=== PATIENT | male | born 1950 | race Caucasian/White ===

== ENCOUNTER 2018-03-07 15:11 | Observation (INO) | payer OTHER ==
[2018-03-07] MEDS ORDERED: NA CHLORIDE 0.9% 500 ML ONE (15:32)
[2018-03-07 15:49] LABS: Protime INR 1.11
[2018-03-07 15:51] LABS: Absolute Lymphocytes (CBC) 1.4 K/uL (0.7-4.9); Absolute Monocytes 0.6 K/uL (0.1-1.3); Absolute Neutrophil 3.6 K/uL (1.8-8.0); Basophils % 0.6 % (0-1.3); Eosinophils % 2.2 % (0-4.4); Hematocrit 42.4 % (39.6-49.0); Lymphocytes % 23.9 % (15.3-44.8); MCH 31.1 pg (27.0-35.0); MCV 90.1 fL (80-100); MPV 7.3 fL (7.6-11.3); Monocytes % 9.7 % (3.3-12.3); RBC Red Blood Cell Count 4.71 M/uL (4.33-5.43)
--- NOTE | 2018-03-07 15:55 | RAD REPORT ---
EXAM DESCRIPTION: CT - Head Brain Wo Cont - 03/07/2018 3:44 pm CLINICAL HISTORY: Syncope COMPARISON: None. TECHNIQUE: Computed axial tomography of the head was obtained. IV contrast was not requested. All CT scans are performed using dose optimization technique as appropriate and may include automated exposure control or mA/KV adjustment according to patient size. FINDINGS: An intracranial bleed is not seen . The ventricles are normal in caliber. No extra-axial fluid collection is noted. Fluid within the sinuses/ mastoids is not seen. IMPRESSION: No acute intracranial abnormality is seen. If patient's symptoms persist MRI of the bra in would be recommended.
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
[2018-03-07] MEDS ORDERED: ASPIRIN 81 MG CHEWABLE TABLET ONE (16:22)
[2018-03-07] MEDS ORDERED: ACETAMINOPHEN 500 MG TAB PO PRN (16:30)
[2018-03-07] MEDS: INSULIN -REGULAR HUMAN 50 UNIT/0.5 ML ML SQ SCH ×2 (16:30→21:00)
[2018-03-07] MEDS ORDERED: ALBUTEROL 2.5 MG/3 ML NEB SOL NEB PRN (16:30)
[2018-03-07] MEDS ORDERED: ONDANSETRON 4 MG/2 ML VIAL IV PRN (16:30)
[2018-03-07] MEDS ORDERED: IPRATROPIUM BROM 0.5MG/2.5ML NEB PRN (16:30)
--- NOTE | 2018-03-07 16:37 | EKG ---
Test Date: 2018-03-07 Test Time: 15:10:43 Auto Transmission Specialist: VALERIA MEASUREMENT RESULTS: Intervals: Rate: 62 MS: 146 QRSD: 102 QT: 380 QTc: 385 [place]: P: 46 MS: 146 QRS: 40 T: 41 INTERPRETIVE STATEMENTS: Normal sinus rhythm Normal ECG Compared to ECG 06/07/2002 19:24:00 No significant changes Electronically Signed On 03-07-18 16:36:50 CDT by Yovani Bacon
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
--- NOTE | 2018-03-07 17:14 | RAD REPORT ---
EXAM DESCRIPTION: RAD - Chest Pa And Lat (2 Views) - 03/07/2018 5:06 pm CLINICAL HISTORY: Syncope, dizziness COMPARISON: December 2013 TECHNIQUE: PA and lateral views of the chest were obtained. FINDINGS: The lungs are clear of failure, infiltrate or mass. Enlarged pulmonary arteries noted incr eased slightly from prior imaging. No pulmonary artery hypertension history noted. Heart size is no rmal and central vasculature is within normal limits. No pleural effusion or pneumothorax seen. No acute bony finding noted. No aortic abnormality. IMPRESSION: No failure, infiltrate or lung parenchymal mass. Enlarged pulmonary arteries increased slightly over 2014.
--- NOTE | 2018-03-07 17:35 | RAD REPORT ---
EXAM DESCRIPTION: TANVI - LAY - 03/07/2018 5:24 pm CLINICAL HISTORY: TIA, weakness, dizziness, near syncope COMPARISON: None. TECHNIQUE: Real-time sonographic evaluation of both carotid systems was performed. Doppler interroga tion was performed with waveform tracing bilaterally. FINDINGS: Normal high resistance waveforms are noted in both external carotid arteries. The common c arotid arteries and internal carotid arteries show normal low resistance waveforms. No significant plaque formation is seen. Peak systolic and end diastolic velocity values and the ICA/ CCA ratios are in the non-hemodynamically significant range. Antegrade flow seen in both vertebral arteries. Velocity values and ratios were recorded and are retained in the patient's imaging records. IMPRESSION: No significant atherosclerotic changes noted. No evidence of a hemodynamically significant stenosis.
[2018-03-07 17:50] LABS: Potassium 4.3 mmol/L (3.5-5.1)
[2018-03-07 17:51] LABS: Magnesium 2.2 mg/dL (1.8-2.4)
--- NOTE | 2018-03-07 19:08 | RAD REPORT ---
EXAM DESCRIPTION: CTHead angio03/07/2018 6:48 pm CLINICAL HISTORY: Syncope COMPARISON: None TECHNIQUE: CT angiogram of the head was obtained. 50 cc Isovue 370 was intravenously. Coronal and sa gittal reconstruction was performed. All CT scans are performed using dose optimization technique as appropriate and may include automated exposure control or mA/KV adjustment according to patient size. FINDINGS: The basilar, internal carotid, anterior cerebral, middle cerebral and posterior cerebral a rteries are normal caliber. An aneurysm is not seen. A significant stenosis is not noted. IMPRESSION: Unremarkable CT angiogram head.
--- NOTE | 2018-03-07 19:10 | RAD REPORT ---
EXAM DESCRIPTION: [facility] Angio03/07/2018 6:47 pm CLINICAL HISTORY: Syncope COMPARISON: None TECHNIQUE: 50 cc Isovue [address] angiogram neck was performed. Coronal and sagittal reconstruction was done. All CT scans are performed using dose optimization technique as appropriate and may include automated exposure control or mA/KV adjustment according to patient size. FINDINGS: The opacification of the arteries is somewhat suboptimal. A short segment oblique lucency is present within the distal right vertebral artery. The vertebral arteries are codominant Common carotid, external carotid, internal carotid and left vertebral artery are normal caliber witho ut dissection or significant stenosis. An aneurysm is not seen IMPRESSION: Short segment oblique lucency within the distal right vertebral artery probably represen ts artifact. Dissection is considered less likely. It is recommended that the patient have an MRA bra in and MRI brain for further evaluation Otherwise, the arteries appear unremarkable
[2018-03-07 20:00] VITALS: O2SAT 98
[2018-03-07 20:32] VITALS: BMI 58.9
[2018-03-07] MEDS ORDERED: ATORVASTATIN 20 MG TAB PO SCH (21:00)
[2018-03-07] MEDS ORDERED: GABAPENTIN 300 MG CAP PO SCH (21:00)
[2018-03-07] MEDS: NA CHLORIDE 0.9% 1,000 ML IV SCH (21:40)
[2018-03-07] MEDS: ENOXAPARIN 40 MG/0.4 ML SQ SCH (21:40)
[2018-03-07 21:54] LABS: Urine Appearance CLEAR; Urine Bilirubin NEGATIVE (NEG); Urine Blood NEGATIVE (NEG); Urine Color YELLOW; Urine Glucose NEGATIVE (NEG); Urine Microscopic Reflex NO UMIC; Urine Protein NEGATIVE (NEG); Urine Specific Gravity 1.025 (1.005-1.030)
[2018-03-07 23:05] LABS: CKMB Creatine Kinase MB 1.6 ng/mL (0.3-3.6)
[2018-03-08 05:55] LABS: Absolute Lymphocytes (CBC) 1.3 K/uL (0.7-4.9); Absolute Monocytes 0.5 K/uL (0.1-1.3); Absolute Neutrophil 3.1 K/uL (1.8-8.0); Basophils % 0.9 % (0-1.3); Eosinophils % 3.3 % (0-4.4); Hematocrit 38.1 % (39.6-49.0); Lymphocytes % 25.2 % (15.3-44.8); MCH 31.4 pg (27.0-35.0); MCV 89.6 fL (80-100); MPV 7.1 fL (7.6-11.3); Monocytes % 10.4 % (3.3-12.3); RBC Red Blood Cell Count 4.26 M/uL (4.33-5.43)
[2018-03-08 06:11] LABS: CKMB Creatine Kinase MB 1.8 ng/mL (0.3-3.6); Magnesium 2.2 mg/dL (1.8-2.4); Potassium 4.8 mmol/L (3.5-5.1); T4,Total 8.1 ug/dL (4.5-12.1)
[2018-03-08 06:13] LABS: Thyroid Stimulating Hormone 3.85 uIU/mL (0.36-3.74)
[2018-03-08] MEDS: INSULIN -REGULAR HUMAN 50 UNIT/0.5 ML ML SQ SCH ×2 (07:30→11:30)
[2018-03-08] MEDS ORDERED: PANTOPRAZOLE 40MG TABLET PO SCH (07:30)
--- NOTE | 2018-03-08 08:18 | P.PN ---
Subjective Date of Service: 03/08/18 Primary Care Provider: [facility] Chief Complaint: Diplopia, headache, dizziness Subjective: Other (Patient has mild headache. No diplopia or dizziness noted. No significant chest pain noted.) Physical Examination - Vital Signs Temperature: 97.9 F Blood Pressure: 137/86 Pulse: 65 Respirations: 16 Pulse Ox (%): 96 - Physical Exam General: Alert, In no apparent distress, Oriented x3, Cooperative HEENT: Atraumatic Neck: Supple Respiratory: Clear to auscultation bilaterally, Normal air movement Cardiovascular: Normal pulses, Regular rate/rhythm Gastrointestinal: Normal bowel sounds, Soft and benign, Non-distended, No tenderness, No masses, No rebound, No guarding, Other (Morbid obesity) Musculoskeletal: No erythema, No tenderness, No warmth Integumentary: No erythema, No warmth, No cyanosis, Tenderness/swelling (Edema to the lower extremity improved. Patient with chronic lymphedema ) Neurological: Normal speech, Normal strength at 5/5 x4 extr, Normal tone, Normal affect - Studies Medications List Reviewed: Yes Assessment & Plan - Problems (Diagnosis) (1) TIA (transient ischemic attack) Current Visit: Yes Status: Acute Plan: Patient likely had TIA. CT angiogram of neck scan shows short-segment oblique lucency within the distal right vertebral artery. Vertebral artery dissection could not be excluded. Case discussed in detail with radiology, cardiology and neurology. Patient requires MRI/MRA brain of neck to further assess but this cannot be done at our facility due to his weight(patient weighs 450 lb). Recommendation is for the patient be transferred to higher level of care center for 4 vessel angiogram with possible intervention to further assess the distal right vertebral artery for dissection. Patient previously not on aspirin, cholesterol medication for blood pressure medication. Patient now on aspirin, statin medication and lisinopril. Patient with history of diabetes, hyperlipidemia, hypertension, atrial fibrillation with previous ablation and morbid obesity. Await transfer to higher level of care center. Transfer in progress. (2) Diplopia Current Visit: Yes Status: Acute Plan: Continue as above. Recommend transfer for 4 vessel angiogram (3) Headache Current Visit: Yes Status: Acute Plan: Continue as above Qualifiers: Headache type: unspecified Headache chronicity pattern: acute headache Intractability: not intractable Qualified Code(s): R51 - Headache (4) Dizziness Current Visit: Yes Status: Acute Plan: Continue as above. (5) Diabetes mellitus Current Visit: Yes Status: Chronic Plan: A1c 6.2. Will continue sliding scale. Qualifiers: Diabetes mellitus type: type 2 Diabetes mellitus nursing home insulin use: without nursing home use Diabetes mellitus complication status: with neurologic complications Diabetes mellitus complication detail: with unspecified neuropathy Qualified Code(s): E11.40 - Type 2 diabetes mellitus with diabetic neuropathy, unspecified (6) Diabetic neuropathy Current Visit: Yes Status: Chronic Plan: Continue with gabapentin Qualifiers: Diabetes mellitus type: type 2 Diabetes mellitus complication detail: diabetic polyneuropathy Qualified Code(s): E11.42 - Type 2 diabetes mellitus with diabetic polyneuropathy (7) Hypertension Current Visit: No Status: Chronic Plan: Lisinopril started, low dose. Will hold if blood pressure less than 150 systolic. Qualifiers: Hypertension type: essential hypertension Qualified Code(s): I10 - Essential (primary) hypertension (8) Lymphedema Current Visit: No Status: Chronic Plan: Patient with chronic lymphedema. Patient uses wrappings. Will provide Lasix. (9) Morbid obesity Current Visit: No Status: Chronic Plan: Will evaluate BMI. (10) Abnormal CT of brain Current Visit: Yes Status: Acute Plan: Continue as above. (11) Vertebral artery dissection Current Visit: Yes Status: Suspected Plan: Case discussed with radiology, neurology and cardiology. Patient requires further evaluation. Patient not able to get MRI/MRA brain/neck at our facility due to his weight. Patient weighs over 450 lb. Recommendation is transfer to neuro ICU for 4 vessel angiogram to further assess. Patient will need neuro ICU , neurology, neuro radiology and possible neuro surgery. (12) History of atrial fibrillation Current Visit: Yes Status: Chronic Plan: Patient with cardiac ablation the past. Patient in normal sinus rhythm. (13) History of cardiac radiofrequency ablation Current Visit: Yes Status: Chronic Plan: Patient currently stable this time. (14) Hyperlipidemia Current Visit: Yes Status: Chronic Plan: Patient has been started on statin medication. (15) Elevated troponin Current Visit: Yes Status: Acute Plan: Patient with elevated troponin. Cardiology consulted. Patient will likely need cardiac evaluation. Continue as above. Discharge Plan: Transfer Plan to discharge in: 24 Hours Time Spent Managing Pts Care (In Minutes): 55
[2018-03-08] MEDS ORDERED: ASPIRIN EC 81 MG TAB PO SCH (09:00)
[2018-03-08] MEDS ORDERED: FUROSEMIDE 40 MG TABLET PO SCH (09:00)
[2018-03-08] MEDS ORDERED: GABAPENTIN 300 MG CAP PO SCH (09:00)
[2018-03-08] MEDS ORDERED: LISINOPRIL 10 MG TAB PO SCH ×2 (09:00)
[2018-03-08] MEDS ORDERED: OXYBUTYNIN ER 5 MG TAB PO SCH ×2 (09:00)
[2018-03-08] MEDS: ENOXAPARIN 40 MG/0.4 ML SQ SCH (09:05)
--- NOTE | 2018-03-08 11:10 | P.DS ---
Admission Date: 03/07/18 Discharge Date: 03/08/18 Primary Care Provider: [facility] Disposition: TRANSFER TO [facility] Discharge Condition: GOOD Reason for Admission: Diplopia, headache, dizziness Consultations: Neurology-Dr. Levi Cardiology-Dr. Bacon Procedures: CT head: No acute findings noted. Carotid Doppler: No acute findings noted. CT angiogram head: FINDINGS: The basilar, internal carotid, anterior cerebral, middle cerebral and posterior cerebral arteries are normal caliber. An aneurysm is not seen. A significant stenosis is not noted. IMPRESSION: Unremarkable CT angiogram head. CT angiogram neck: FINDINGS: The opacification of the arteries is somewhat suboptimal. A short segment oblique lucency is present within the distal right vertebral artery. The vertebral arteries are codominant Common carotid, external carotid, internal carotid and left vertebral artery are normal caliber without dissection or significant stenosis. An aneurysm is not seen IMPRESSION: Short segment oblique lucency within the distal right vertebral artery probably represents artifact. Dissection is considered less likely. It is recommended that the patient have an MRA brain and MRI brain for further evaluation Otherwise, the arteries appear unremarkable - Problems (1) TIA (transient ischemic attack) Onset Date: 03/08/18 Current Visit: Yes Status: Acute (2) Diplopia Onset Date: 03/08/18 Current Visit: Yes Status: Acute (3) Headache Onset Date: 03/08/18 Current Visit: Yes Status: Acute Qualifiers: Headache type: unspecified Headache chronicity pattern: acute headache Intractability: not intractable Qualified Code(s): R51 - Headache (4) Dizziness Onset Date: 03/08/18 Current Visit: Yes Status: Acute (5) Diabetes mellitus Onset Date: 03/08/18 Current Visit: Yes Status: Chronic Qualifiers: Diabetes mellitus type: type 2 Diabetes mellitus chcf insulin use: without diver pumper use Diabetes mellitus complication status: with neurologic complications Diabetes mellitus complication detail: with unspecified neuropathy Qualified Code(s): E11.40 - Type 2 diabetes mellitus with diabetic neuropathy, unspecified (6) Diabetic neuropathy Onset Date: 03/08/18 Current Visit: Yes Status: Chronic Qualifiers: Diabetes mellitus type: type 2 Diabetes mellitus complication detail: diabetic polyneuropathy Qualified Code(s): E11.42 - Type 2 diabetes mellitus with diabetic polyneuropathy (7) Hypertension Onset Date: 03/08/18 Current Visit: Yes Status: Chronic Qualifiers: Hypertension type: essential hypertension Qualified Code(s): I10 - Essential (primary) hypertension (8) Lymphedema Onset Date: 03/08/18 Current Visit: Yes Status: Chronic (9) Morbid obesity Onset Date: 03/08/18 Current Visit: Yes Status: Chronic (10) Abnormal CT of brain Current Visit: Yes Status: Acute (11) Vertebral artery dissection Current Visit: Yes Status: Suspected (12) History of atrial fibrillation Current Visit: Yes Status: Chronic (13) History of cardiac radiofrequency ablation Current Visit: Yes Status: Chronic (14) Hyperlipidemia Current Visit: Yes Status: Chronic (15) Elevated troponin Current Visit: Yes Status: Acute Brief History of Present Illness: 67-year-old male presented emergency room with multiple complaints including headache, dizziness, and diplopia. Patient has diabetes, diabetic neuropathy, a history of atrial fibrillation with previous ablation and morbid obesity. Patient reported this morning he was sitting in front of the computer. He reported a sharp pain to the back of his eyes. He reported a headache as well. He then felt his eyes cross. Then he had double vision. This lasted about 2 min. He felt dizzy thereafter. When he closed one eye he felt his vision was good. He continued to have blurry vision. The patient denied any chest pain, shortness of breath, or nausea and vomiting. [facility] recommended that he go to the ER. Earlier in the day his son called him. His son reported that he was muffled. The patient does not recall this. He reported that his symptoms lasted for about 20 min. He is now back to his baseline. In the ER patient was evaluated. Initial CT scan shows no acute stroke. Lab unremarkable. Blood pressure is slightly elevated. Due to nature of his symptoms the the patient will be observed. When I saw the patient ER, he appeared comfortable. Family was at bedside. He reported no further dizziness, headaches or diplopia. The patient does not smoke. He stop drinking many years ago. Patient reports that he had been taking and blood pressure medication but this was discontinued years ago. He does not take aspirin. He was recently diagnosed with asbestosis. The patient is morbidly obese. Patient with history of atrial fibrillation with previous ablation. He also has a history of DVT in the past. The patient does not take any cholesterol medication. Hospital Course: The patient was admitted to further assess diplopia, dizziness and headache. Patient had CT angiogram of neck. It revealed a short segment oblique lucency within the distal right vertebral artery. Dissection could not be ruled out. Due to the patient's weight over 450 lb, MRI/MRA could not be done. Discuss length with radiology, neurology and cardiology. Recommendation is to transfer patient to higher level of care center to further evaluate possible dissection. Patient would require 4 vessel angiogram. Case discussed with Neurology at [facility]. Neurology has accepted patient to further evaluate. Patient may require repeat CT angiogram verses 4 vessel angiogram. Patient may require dual anti-platelet therapy or chronic anti coagulation due to his history of atrial fibrillation. Patient transferred for further evaluation. Patient has diabetes. Hemoglobin A1c 5.2. Patient currently on sliding scale. Patient may continue with his medication at discharge. Patient has hypertension. Patient previously had been on medication but this was discontinued. Patient currently on lisinopril 10 mg daily. Will hold if blood pressure systolic less than 150. This can be further adjusted in [place]. Patient has history of atrial fibrillation with previous ablation. Patient with normal sinus rhythm. Patient may require chronic anti coagulation therapy due to above findings. This can be further assessed by Neurology and Cardiology. Patient with elevated troponin. Patient is not had cardiac workup in the recent past. Patient may benefit with cardiac evaluation. Echocardiogram to be done. Patient has hyperlipidemia. Statin medication started. This will need to be continued. Patient with diabetic neuropathy. Patient will need to continue with his medication. Patient with BPH. Patient continue with his medication. Patient has lymphedema. Patient does wrappings daily. Patient may benefit with Lasix 40 mg daily. Patient will need to continue with a 1500 cc per day fluid restriction and low-salt diet. Patient with morbid obesity. Patient with history of lap band procedure. Vital Signs/Physical Exam: Temp Pulse Resp BP Pulse Ox 97.9 F 72 16 158/86 H 96 03/08/18 08:23 03/08/18 09:02 03/08/18 08:23 03/08/18 09:02 03/08/18 08:23 General: Alert, In no apparent distress, Oriented x3, Cooperative HEENT: Atraumatic Neck: Supple Respiratory: Clear to auscultation bilaterally, Normal air movement Cardiovascular: Normal pulses, Regular rate/rhythm Gastrointestinal: Normal bowel sounds, Soft and benign, Non-distended, No masses , No rebound, No guarding Musculoskeletal: No erythema, No tenderness, No warmth Integumentary: No erythema, No warmth, No cyanosis, Tenderness/swelling (Edema to the lower extremities improved) Neurological: Normal speech, Normal strength at 5/5 x4 extr, Normal tone, Normal affect Laboratory Data at Discharge: WBC 5.1 K/uL (4.3-10.9) 03/08/18 05:28 Hgb 13.4 g/dL (13.6-17.9) L 03/08/18 05:28 Hct 38.1 % (39.6-49.0) L 03/08/18 05:28 Plt Count 168 K/uL (152-406) 03/08/18 05:28 PT 13.1 SECONDS (9.5-12.5) H 03/07/18 16:08 INR 1.11 03/07/18 16:08 APTT 29.5 SECONDS (24.3-36.9) 03/07/18 16:08 Sodium 140 mmol/L (136-145) 03/08/18 05:28 Potassium 4.8 mmol/L (3.5-5.1) 03/08/18 05:28 BUN 18 mg/dL (7-18) 03/08/18 05:28 Creatinine 1.30 mg/dL (0.55-1.3) 03/08/18 05:28 Glucose 114 mg/dL (74-106) H 03/08/18 05:28 Magnesium 2.2 mg/dL (1.8-2.4) 03/08/18 05:28 Troponin I 0.06 ng/mL (0.0-0.045) H 03/08/18 05:28 Triglycerides 84 mg/dL (<150) 03/08/18 05:28 Cholesterol 109 mg/dL (<200) 03/08/18 05:28 HDL Cholesterol 40 mg/dL (40-60) 03/08/18 05:28 Cholesterol/HDL Ratio 2.73 03/08/18 05:28 Home Medications: Albuterol Sulfate [Proair Hfa] 2 puff IH TID 03/07/18 Gabapentin [Neurontin] 900 mg PO TID 03/07/18 Meloxicam [Mobic] 1 tab PO BID 03/07/18 Metformin HCl [Glucophage*] 500 mg PO BID 03/07/18 Oxybutynin Chloride [Ditropan*] 10 mg PO BID 03/07/18 Patient Discharge Instructions: 1. Patient to be transferred to higher level of care center to further assess possible distal right vertebral artery. Continue with current medications. Further adjustment in medication can be done in [place]. Diet: AHA Activity: Bedrest Time spent managing pt's care (in minutes): 55
--- NOTE | 2018-03-08 11:39 | CON ---
Identification: A 67-year-old man. Chief Complaint: Double vision. History Of Present Illness: The patient was in his usual state of health, sitting, watching a comput er screen when he got double vision. He was also lightheaded, near syncopal. He thinks he may have lost vision completely for a few seconds. After coming to the ER, most of his symptoms had resolved. I do not think he got tPA. He has been in our hospital since then. Most of his neurological sympt oms have improved. He has had a variety of tests showing that the carotid arteries look okay, which is reassuring since his symptoms would be posterior circulation. A CT angio of the head and neck ind icates that the vertebral artery appears possibly to be dissected well. The vertebral arteries are c odominant. It is the distal right vertebral artery, so probably quite close to it being intracranial . An MRI has not been done. An attempt was made to send the patient to [facility], but weight creates a problem for MRI scanners and nobody could really do it. I do not think we can fit him in our MRI scanner either. The patient has morbid obesity all of his life. He weighed close to 450 venkat nds for years. He has a history of AFib and underwent ablation and has had no AFib. Has not been on anticoagulants. About a year ago, he had DVT and took Coumadin for 6 months. He is now off it, and he has diabetes, which he attributes to [employer] exposure. Medications: Home medications are meloxicam, oxybutynin, metformin gabapentin, and albuterol. Appar ently he has not been on aspirin. His medications since being are DVT dose, Lovenox, aspirin 162, li sinopril, oxybutynin, Protonix, insulin protocol, gabapentin, Lasix, Lipitor. He is not Plavix. Allergies: REPORTS INTOLERANCE TO ADHESIVE TAPE AND BETA BLOCKERS. Physical Examination: Vital Signs: Height 6 feet 1, 446 pounds. General: Alert, oriented, pleasant. HEENT: Extraocular motions normal. Lungs: Clear. Heart: Within normal limits. Abdomen: Soft. Extremities: marked edema. There are venous stasis cutaneous changes. Mild cellulitis on the right chu. Laboratory Data: His EKG is normal. Troponin levels are 0.05, 0.06, and 0.03. Creatinine is 1.2 an d 1.3. Blood sugar 114. Total cholesterol 109, HDL cholesterol 40. 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 I would be concerned th at he may be a candidate for a neuroradiologist's input. I am not sure that they would want to put a stent in, but I think a higher level of care is really needed, at least a telephone consult with the neuroradiologist might settle things as to whether they would do an intervention. Apparently, there are not any machines that would fit him in for an MRA. An angiography suite most likely would be ab le to accommodate him and it is conceivable, although probably technically difficult that he could gann ve a stent placed in his vertebral artery for this dissection. I would ask Dr. Levi whether dual anti-platelet therapy is indicated. regarding the troponins, the patient has not had chest pain, gann s not had EKG changes. I can't really explain the troponins, but they are not in a pattern or a sett ing where it sounds at all like an acute coronary syndrome. So, if he gets chest pain, we will give aspirin and I would be in favor of dual antiplatelet therapy, not just aspirin alone. He is not a ca ndidate who needs an emergency cardiac cath. He would not be a candidate who could do a nuclear stre ss test. So, medical therapy for ischemic heart disease would be indicated, which would be dual anti platelet therapy, statins, and nitroglycerin p.r.n. YARI/ADRIAN Voice ID: [id number] Report ID: [id number]
[2018-03-08 12:15] VITALS: BP 167/102; TEMP 97.7
[2018-03-08] MEDS: NA CHLORIDE 0.9% 1,000 ML IV SCH (13:00)
== END 2018-03-08 14:40 | disposition short-term general hospital (02) ==
LOC: ER 15:11 → ERHOLD 16:08 → 4TH 18:29
PROVIDERS: ADMIT Family Medicine; ATTEND Family Medicine
DX: G45.9 Transient cerebral ischemic attack, unspecified (principal); H53.2 Diplopia; E66.01 Morbid (severe) obesity due to excess calories; Z86.718 Personal history of other venous thrombosis and embolism; Z57.5 Occupational exposure to toxic agents in other industries; Z79.84 Long term (current) use of oral hypoglycemic drugs; Z79.82 Long term (current) use of aspirin; Z88.8 Allergy status to other drugs, medicaments and biological substances; Z91.048 Other nonmedicinal substance allergy status; I87.8 Other specified disorders of veins; L03.115 Cellulitis of right lower limb; R51 Headache; R42 Dizziness and giddiness; E11.42 Type 2 diabetes mellitus with diabetic polyneuropathy; I10 Essential (primary) hypertension; R74.8 Abnormal levels of other serum enzymes; I89.0 Lymphedema, not elsewhere classified; R90.89 Other abnormal findings on diagnostic imaging of central nervous system; J61 Pneumoconiosis due to asbestos and other mineral fibers; Z98.84 Bariatric surgery status; Z68.44 Body mass index [BMI] 60.0-69.9, adult
CPT/HCPCS: 36415; 70450; 70496; 70498; 71046; 80048 ×2; 80061; 81003; 82550 ×2; 82553 ×2; 82962 ×3; 83036; 83735 ×2; 84436; 84439; 84443; 84484 ×3; 85025 ×2; 85610; 85730; 93005 ×2; 93880; 96360; 99285; G0378 ×2; J1650 ×2; J7030; Q9967

== ENCOUNTER 2019-08-21 05:14 | Inpatient (IN) | payer OTHER ==
--- OUTSIDE RECORDS SUMMARY | 2019-08-21 05:18 | XMS REPORT ---
:1950 [facility] Address [address] [place] [address] Care Team Providers Name Role Phone MALCOLM XIE Unavailable Unavailable Payers Payer Name Policy Type Policy Number Effective Date Expiration Date Problems This patient has no known problems. Allergies, Adverse Reactions, Alerts Allergy Allergy Status Severity Reaction(s) Onset Inactive Treating Comments Name Type Date Date Clinician No Known DA Active U 2019-03 Drug - Allergies 00:00:0 0 adhesive DA Active [place] 2019-03 tape 00:00:0 0 No Known DA Active U 2019-02 Drug - Allergies 00:00:0 0 adhesive DA Active [place] 2019-02 tape 00:00:0 0 adhesive DA Active [place] 2018-11 00:00:0 0 adhesive DA Active [place] 2018-11 00:00:0 0 adhesive DA Active [place] 2014-04 00:00:0 0 Medications This patient has no known medications. Results Test Description Test Time Test Comments Text Results Atomic Results Result Comments B-TYPE NATRIURETIC PEPTIDE 2019-04-16 08:53:00 Test Item Value Reference Range Comments B-TYPE NATRIURETIC PEPTIDE (test code=BNP) 76.60 pg/mL 0-100 B-TYPE NATRIURETIC [id number] 08:53:00 Test Item Value Reference Range Comments B-TYPE NATRIURETIC PEPTIDE (test code=BNP) 76.60 pg/mL 0-100 BASIC METABOLIC [id number] 07:14:00 Test Item Value Reference Range Comments SODIUM (test code=NA) 136 mmol/L 136-145 POTASSIUM (test code=K) 5.2 mmol/L 3.5-5.1 CHLORIDE (test code=CL) 98.0 mmol/L 98-107 CARBON DIOXIDE (test code=CO2) 29.3 mmol/L 21-32 GLUCOSE (test code=GLU) 178 mg/dL 70-110 BLOOD UREA NITROGEN (test 29 mg/dL -18 code=BUN) GLOMERULAR FILTRATION RATE 58.3 >60 Unit of measure: (test code=GFR) mL/min/1.73 [id number] Range:Healthy Adults >90 mL/min/1.73 m2 For Chronic Kidney Disease: Stage II Mild Decrease in GFR 60-90 Stage III Moderate Decrease in GFR 30-59 Stage IV Severe Decrease in GFR 15-29 Stage V Kidney Failure <15 CREATININE (test code=CREAT) 1.23 mg/dL 0.55-1.30 CALCIUM (test code=CA) 8.8 mg/dL 8.2-10.1 [id number] 07:14:00 Test Item Value Reference Range Comments MAGNESIUM (test code=MAG) 1.9 mg/dL 1.8-2.4 HGB [id number] 06:13:00 Test Item Value Reference Range Comments HEMOGLOBIN (test code=HGB) 13.0 g/dL 12-16 HEMATOCRIT (test code=HCT) 38.6 % 37-47 [id number] 21:36:00 Test Item Value Reference Range Comments GLUBED (test code=GLUBED) 252 mg/dL 60-125 [id number] 10:14:00 Test Item Value Reference Range Comments GLUBED (test code=GLUBED) 115 mg/dL 60-125 COMPREHENSIVE METABOLIC [id number] 13:14:00 Test Item Value Reference Range Comments SODIUM (test code=NA) 138 mmol/L 136-145 POTASSIUM (test code=K) 5.1 mmol/L 3.5-5.1 CHLORIDE (test code=CL) 101.0 mmol/L 98-107 CARBON DIOXIDE (test code=CO2) 31.0 mmol/L 21-32 GLUCOSE (test code=GLU) 115 mg/dL 70-110 BLOOD UREA NITROGEN (test 25 mg/dL 18 code=BUN) GLOMERULAR FILTRATION RATE 60.6 >60 Unit of measure: (test code=GFR) mL/min/1.73 h1Scvemlghp Range:Healthy Adults >90 mL/min/1.73 m2 For Chronic Kidney Disease: Stage II Mild Decrease in GFR 60-90 Stage III Moderate Decrease in GFR 30-59 Stage IV Severe Decrease in GFR 15-29 Stage V Kidney Failure <15 CREATININE (test code=CREAT) 1.19 mg/dL 0.55-1.30 TOTAL PROTEIN (test code=PROT) 6.7 g/dL 6.4-8.2 ALBUMIN (test code=ALB) 3.8 g/dL 3.4-5.0 GLOBULIN (test code=GLOB) 2.9 g/dL 2.2-4.2 ALBUMIN/GLOBULIN RATIO (test 1.3 0.7-2.0 code=A/G) CALCIUM (test code=CA) 9.1 mg/dL 8.2-10.1 BILIRUBIN TOTAL (test 0.61 mg/dL 0.2-1.00 code=BILT) SGOT/AST (test code=AST) 15.0 U/L 15-37 SGPT/ALT (test code=ALT) 18.0 U/L 12-78 Please note new normal range. ALKALINE PHOSPHATASE TOTAL 92 U/L 46-116 (test code=ALKP) URINALYSIS [id number] 13:06:00 Test Item Value Reference Range Comments UA COLOR (test code=COLU) YELLOW YELLOW UA APPEARANCE (test code=APPU) CLEAR CLEAR UA GLUCOSE DIPSTICK (test code=DGLUU) NEGATIVE NEGATIVE UA BILIRUBIN DIPSTICK (test code=BILU) NEGATIVE NEGATIVE UA KETONE DIPSTICK (test code=KETU) NEGATIVE mg/dL NEGATIVE UA SPECIFIC GRAVITY (test code=SGU) 1.010 1.003-1.035 UA BLOOD DIPSTICK (test code=RON) NEGATIVE NEGATIVE UA PH DIPSTICK (test code=EDA) 7.0 >6.5 UA PROTEIN DIPSTICK (test code=PROU) NEGATIVE mg/dL NEG UA UROBILINIOGEN DIPSTICK (test code=URO) 2.0 mg/dL NORM UA NITRITE DIPSTICK (test code=JULES) NEGATIVE NEG UA LEUKOCYTE ESTERASE DIPSTICK (test NEGATIVE NEGATIVE code=LEUU) UA WBC (test code=WBCU) NONE SEEN /HPF 0-2 UA RBC (test code=RBCU) 0-2 /HPF 0-2 UA EPITHELIAL CELLS (test code=EPIU) 0-2 /HPF 0-2 UA BACTERIA (test code=BACU) RARE /HPF NONE PROTHROMBIN [id number] 13:06:00 Test Item Value Reference Range Comments PROTHROMBIN TIME PATIENT 15.1 secs 10.1-12.5 (test code=PTP) INTERNATIONAL NORMAL RATIO 1.34 <2.0 RECOMMENDED THERAPEUTIC RANGE (test code=INR) FOR ORAL ANTICOAGULANTTREATMENT: CONDITION INRProphylaxis of venous thrombosis in 2.0 - 3.0 high-risk medical or surgical patientsTreatment of venous thrombosis 2.0 - 3.0Prevention of embolism 2.0 - 3.0Prevention of recurrent embolism, or 3.0 - 4.5 patients with mechanical prosthetic intravascular valves IS PATIENT ON ANTICOAGULANTS ? YLIST ANTICOAGULANT/ANTI PLT MEDICATION : CoumadinHas Lab been notified if Patient is on Heparin Drip? NOIf Yes, order CBC , OCCULT BLOOD, PT every other day NTHROMBOPLASTIN TIME [id number] 13:06: 00 Test Item Value Reference Range Comments PTT ACTIVATED (test code=APTT) 31.3 secs 24.9-37.0 IS PATIENT ON ANTICOAGULANTS ? YLIST ANTICOAGULANT/ANTI PLT MEDICATION : CoumadinHas Lab been notified if Patient is on Heparin Drip? NOIf Yes, order CBC , OCCULT BLOOD, PT every other day NCBC W/AUTO [id number] 12:51:00 Test Item Value Reference Range Comments WHITE BLOOD CELL (test code=WBC) 5.7 K/mm3 5.7-10.5 RED BLOOD CELL (test code=RBC) 4.67 M/mm3 4.2-5.4 HEMOGLOBIN (test code=HGB) 14.0 g/dL 12-16 HEMATOCRIT (test code=HCT) 41.2 % 37-47 MEAN CELL VOLUME (test code=MCV) 88 fL 80-98 MEAN CELL HGB (test code=MCH) 30.0 pg 27-34 MEAN CELL HGB CONCENTRATION (test code=MCHC) 34.0 g/dL 30.8-34.1 RED CELL DISTRIBUTION WIDTH (test code=RDW) 12.9 % 11-16 PLT (test code=PLT) 210 K/mm3 130-400 MEAN PLATELET VOLUME (test code=MPV) 9.2 fL 8.9-12.1 NEUTROPHIL % (test code=NT%) 56.6 % 45-70 LYMPHOCYTE % (test code=LY%) 27.2 % 20-40 MONOCYTE % (test code=MO%) 11.6 % 3-10 EOSINOPHIL % (test code=EO%) 3.7 % 1-5 BASOPHIL % (test code=BA%) 0.7 % 0.0-1.1 NEUTROPHIL # (test code=NT#) 3.22 K/mm3 2.00-7.50 LYMPHOCYTE # (test code=LY#) 1.55 K/mm3 1.50-4.00 MONOCYTE # (test code=MO#) 0.66 K/mm3 0.2-0.8 EOSINOPHIL # (test code=EO#) 0.21 K/mm3 0.04-0.4 BASOPHIL # (test code=BA#) 0.04 K/mm3 0.02-0.10 MANUAL DIFF REQUIRED (test code=MDIFF) NO MANUAL DIFF NUCLEATED RED BLOOD CELL (test code=NRBC) 0 % 0-0 [id number] 16:46:00 Test Item Value Reference Range Comments GLUBED (test code=GLUBED) 189 mg/dL 60-125 [id number] 11:57:00 Test Item Value Reference Range Comments GLUBED (test code=GLUBED) 165 mg/dL 60-125 BASIC METABOLIC [id number] 07:11:00 Test Item Value Reference Range Comments SODIUM (test code=NA) 134 mmol/L 136-145 POTASSIUM (test code=K) 5.3 mmol/L 3.5-5.1 CHLORIDE (test code=CL) 99.0 mmol/L 98-107 CARBON DIOXIDE (test code=CO2) 28.5 mmol/L 21-32 GLUCOSE (test code=GLU) 154 mg/dL 70-110 BLOOD UREA NITROGEN (test 30 mg/dL 7-18 code=BUN) GLOMERULAR FILTRATION RATE 68.0 >60 Unit of measure: (test code=GFR) mL/min/1.73 [id number] Range:Healthy Adults >90 mL/min/1.73 m2 For Chronic Kidney Disease: Stage II Mild Decrease in GFR 60-90 Stage III Moderate Decrease in GFR 30-59 Stage IV Severe Decrease in GFR 15-29 Stage V Kidney Failure <15 CREATININE (test code=CREAT) 1.08 mg/dL 0.55-1.30 CALCIUM (test code=CA) 8.2 mg/dL 8.2-10.1 [id number] 07:11:00 Test Item Value Reference Range Comments MAGNESIUM (test code=MAG) 2.0 mg/dL 1.8-2.4 CBC W/AUTO [id number] 05:48:00 Test Item Value Reference Range Comments WHITE BLOOD CELL (test code=WBC) 5.8 K/mm3 5.7-10.5 RED BLOOD CELL (test code=RBC) 4.27 M/mm3 4.2-5.4 HEMOGLOBIN (test code=HGB) 12.8 g/dL 12-16 HEMATOCRIT (test code=HCT) 38.2 % 37-47 MEAN CELL VOLUME (test code=MCV) 90 fL 80-98 MEAN CELL HGB (test code=MCH) 30.0 pg 27-34 MEAN CELL HGB CONCENTRATION (test code=MCHC) 33.5 g/dL 30.8-34.1 RED CELL DISTRIBUTION WIDTH (test code=RDW) 12.2 % 11-16 PLT (test code=PLT) 202 K/mm3 130-400 MEAN PLATELET VOLUME (test code=MPV) 9.3 fL 8.9-12.1 NEUTROPHIL % (test code=NT%) 63.0 % 45-70 LYMPHOCYTE % (test code=LY%) 19.1 % 20-40 MONOCYTE % (test code=MO%) 12.7 % 3-10 EOSINOPHIL % (test code=EO%) 4.0 % 1-5 BASOPHIL % (test code=BA%) 0.7 % 0.0-1.1 NEUTROPHIL # (test code=NT#) 3.67 K/mm3 2.00-7.50 LYMPHOCYTE # (test code=LY#) 1.11 K/mm3 1.50-4.00 MONOCYTE # (test code=MO#) 0.74 K/mm3 0.2-0.8 EOSINOPHIL # (test code=EO#) 0.23 K/mm3 0.04-0.4 BASOPHIL # (test code=BA#) 0.04 K/mm3 0.02-0.10 MANUAL DIFF REQUIRED (test code=MDIFF) NO MANUAL DIFF NUCLEATED RED BLOOD CELL (test code=NRBC) 0 % 0-0 [id number] 05:39:00 Test Item Value Reference Range Comments GLUBED (test code=GLUBED) 175 mg/dL 60-125 [id number] 20:20:00 Test Item Value Reference Range Comments GLUBED (test code=GLUBED) 182 mg/dL 60-125 [id number] 16:45:00 Test Item Value Reference Range Comments GLUBED (test code=GLUBED) 157 mg/dL 60-125 BASIC METABOLIC [id number] 12:10:00 Test Item Value Reference Range Comments SODIUM (test code=NA) 133 mmol/L 136-145 POTASSIUM (test code=K) 5.6 mmol/L 3.5-5.1 CHLORIDE (test code=CL) 98.0 mmol/L 98-107 CARBON DIOXIDE (test code=CO2) 29.5 mmol/L 21-32 GLUCOSE (test code=GLU) 175 mg/dL 70-110 BLOOD UREA NITROGEN (test 35 mg/dL 7-18 code=BUN) GLOMERULAR FILTRATION RATE 62.0 >60 Unit of measure: (test code=GFR) mL/min/1.73 [id number] Range:Healthy Adults >90 mL/min/1.73 m2 For Chronic Kidney Disease: Stage II Mild Decrease in GFR 60-90 Stage III Moderate Decrease in GFR 30-59 Stage IV Severe Decrease in GFR 15-29 Stage V Kidney Failure <15 CREATININE (test code=CREAT) 1.17 mg/dL 0.55-1.30 CALCIUM (test code=CA) 8.5 mg/dL 8.2-10.1 [id number] 12:10:00 Test Item Value Reference Range Comments MAGNESIUM (test code=MAG) 1.7 mg/dL 1.8-2.4 [id number] 11:33:00 Test Item Value Reference Range Comments GLUBED (test code=GLUBED) 187 mg/dL 60-125 [id number] 05:11:00 Test Item Value Reference Range Comments GLUBED (test code=GLUBED) 184 mg/dL 60-125 [id number] 20:14:00 Test Item Value Reference Range Comments GLUBED (test code=GLUBED) 175 mg/dL 60-125 [id number] 17:04:00 Test Item Value Reference Range Comments GLUBED (test code=GLUBED) 179 mg/dL 60-125 [id number] 16:23:00 Test Item Value Reference Range Comments GLUBED (test code=GLUBED) 186 mg/dL 60-125 HGB [id number] 11:33:00 Test Item Value Reference Range Comments HEMOGLOBIN (test code=HGB) 13.2 g/dL 12-16 HEMATOCRIT (test code=HCT) 39.2 % 37-47 [id number] 05:14:00 Test Item Value Reference Range Comments GLUBED (test code=GLUBED) 174 mg/dL 60-125 [id number] 20:55:00 Test Item Value Reference Range Comments GLUBED (test code=GLUBED) 159 mg/dL 60-125 [id number] 16:53:00 Test Item Value Reference Range Comments GLUBED (test code=GLUBED) 152 mg/dL 60-125 [id number] 12:08:00 Test Item Value Reference Range Comments GLUBED (test code=GLUBED) 173 mg/dL 60-125 [id number] 05:49:00 Test Item Value Reference Range Comments GLUBED (test code=GLUBED) 137 mg/dL 60-125 [id number] 20:23:00 Test Item Value Reference Range Comments GLUBED (test code=GLUBED) 221 mg/dL 60-125 [id number] 17:05:00 Test Item Value Reference Range Comments GLUBED (test code=GLUBED) 139 mg/dL 60-125 [id number] 12:14:00 Test Item Value Reference Range Comments GLUBED (test code=GLUBED) 208 mg/dL 60-125 [id number] [id number] 06:26:00 Test Item Value Reference Range Comments HEMOGLOBIN (test code=HGB) 13.1 g/dL 12-16 HEMATOCRIT (test code=HCT) 39.2 % 37-47 [id number] 05:49:00 Test Item Value Reference Range Comments GLUBED (test code=GLUBED) 187 mg/dL 60-125 [id number] 20:18:00 Test Item Value Reference Range Comments GLUBED (test code=GLUBED) 243 mg/dL 60-125 [id number] 16:33:00 Test Item Value Reference Range Comments GLUBED (test code=GLUBED) 271 mg/dL 60-125 [id number] 12:01:00 Test Item Value Reference Range Comments GLUBED (test code=GLUBED) 235 mg/dL 60-125 [id number] 11:47:00 Test Item Value Reference Range Comments GLUBED (test code=GLUBED) 198 mg/dL 60-125 BASIC METABOLIC [id number] 06:22:00 Test Item Value Reference Range Comments SODIUM (test code=NA) 134 mmol/L 136-145 POTASSIUM (test code=K) 5.3 mmol/L 3.5-5.1 CHLORIDE (test code=CL) 98.0 mmol/L 98-107 CARBON DIOXIDE (test code=CO2) 27.8 mmol/L 21-32 GLUCOSE (test code=GLU) 210 mg/dL 70-110 BLOOD UREA NITROGEN (test 25 mg/dL 7-18 code=BUN) GLOMERULAR FILTRATION RATE 60.8 >60 Unit of measure: (test code=GFR) mL/min/1.73 d1Kqzzehtjq Range:Healthy Adults >90 mL/min/1.73 m2 For Chronic Kidney Disease: Stage II Mild Decrease in GFR 60-90 Stage III Moderate Decrease in GFR 30-59 Stage IV Severe Decrease in GFR 15-29 Stage V Kidney Failure <15 CREATININE (test code=CREAT) 1.19 mg/dL 0.55-1.30 CALCIUM (test code=CA) 8.6 mg/dL 8.2-10.1 HGB [id number] 05:43:00 Test Item Value Reference Range Comments HEMOGLOBIN (test code=HGB) 13.4 g/dL 12-16 HEMATOCRIT (test code=HCT) 39.5 % 37-47 [id number] 05:16:00 Test Item Value Reference Range Comments GLUBED (test code=GLUBED) 208 mg/dL 60-125 [id number] 18:15:00 Test Item Value Reference Range Comments GLUBED (test code=GLUBED) 239 mg/dL 60-125 [id number] 12:39:00 Test Item Value Reference Range Comments GLUBED (test code=GLUBED) 171 mg/dL 60-125 [id number] 07:54:00 Test Item Value Reference Range Comments GLUBED (test code=GLUBED) 125 mg/dL 60-125 AB HIV 1 18:06:00 Test Item Value Reference Range Comments AB HIV 1 2 (test NONREACTIVE NONREACTIVE Done by [employer] 4th code=MAI24LE) Gen HIV Ag/Ab Combo Screen AB HIV 18:06:00 Test Item Value Reference Range Comments AB HIV 1 (test code=HIV1AB) NONREACTIVE NONREACTIVE Done by [employer] 4th Gen HIV Ag/Ab Combo Screen PROTHROMBIN [id number] 13:02:00 Test Item Value Reference Range Comments PROTHROMBIN TIME PATIENT 11.0 secs 10.1-12.5 (test code=PTP) INTERNATIONAL NORMAL RATIO 0.97 <2.0 RECOMMENDED THERAPEUTIC RANGE (test code=INR) FOR ORAL ANTICOAGULANTTREATMENT: CONDITION INRProphylaxis of venous thrombosis in 2.0 - 3.0 high-risk medical or surgical patientsTreatment of venous thrombosis 2.0 - 3.0Prevention of embolism 2.0 - 3.0Prevention of recurrent embolism, or 3.0 - 4.5 patients with mechanical prosthetic intravascular valves IS PATIENT ON ANTICOAGULANTS ? YLIST ANTICOAGULANT/ANTI PLT MEDICATION : AspirinHas Lab been notified if Patient is on Heparin Drip? NOIf Yes, order CBC , OCCULT BLOOD, PT every other day NTHROMBOPLASTIN TIME [id number] 13:02: 00 Test Item Value Reference Range Comments PTT ACTIVATED (test code=APTT) 28.6 secs 24.9-37.0 IS PATIENT ON ANTICOAGULANTS ? YLIST ANTICOAGULANT/ANTI PLT MEDICATION : AspirinHas Lab been notified if Patient is on Heparin Drip? NOIf Yes, order CBC , OCCULT BLOOD, PT every other day NURINALYSIS [id number] 12:56:00 Test Item Value Reference Range Comments UA COLOR (test code=COLU) YELLOW YELLOW UA APPEARANCE (test code=APPU) CLEAR CLEAR UA GLUCOSE DIPSTICK (test code=DGLUU) NEGATIVE NEGATIVE UA BILIRUBIN DIPSTICK (test code=BILU) NEGATIVE NEGATIVE UA KETONE DIPSTICK (test code=KETU) NEGATIVE mg/dL NEGATIVE UA SPECIFIC GRAVITY (test code=SGU) 1.015 1.003-1.035 UA BLOOD DIPSTICK (test code=RON) NEGATIVE NEGATIVE UA PH DIPSTICK (test code=EDA) 6.5 >6.5 UA PROTEIN DIPSTICK (test code=PROU) NEGATIVE mg/dL NEG UA UROBILINIOGEN DIPSTICK (test code=URO) 2.0 mg/dL NORM UA NITRITE DIPSTICK (test code=JULES) NEGATIVE NEG UA LEUKOCYTE ESTERASE DIPSTICK (test NEGATIVE NEGATIVE code=LEUU) UA WBC (test code=WBCU) NONE SEEN /HPF 0-2 UA RBC (test code=RBCU) NONE SEEN /HPF 0-2 UA EPITHELIAL CELLS (test code=EPIU) 0-2 /HPF 0-2 UA BACTERIA (test code=BACU) RARE /HPF NONE COMPREHENSIVE METABOLIC [id number] 12:43:00 Test Item Value Reference Range Comments SODIUM (test code=NA) 137 mmol/L 136-145 POTASSIUM (test code=K) 4.4 mmol/L 3.5-5.1 CHLORIDE (test code=CL) 99.0 mmol/L 98-107 CARBON DIOXIDE (test code=CO2) 29.6 mmol/L 21-32 GLUCOSE (test code=GLU) 128 mg/dL 70-110 BLOOD UREA NITROGEN (test 23 mg/dL 7-18 code=BUN) GLOMERULAR FILTRATION RATE 59.6 >60 Unit of measure: (test code=GFR) mL/min/1.73 [id number] Range:Healthy Adults >90 mL/min/1.73 m2 For Chronic Kidney Disease: Stage II Mild Decrease in GFR 60-90 Stage III Moderate Decrease in GFR 30-59 Stage IV Severe Decrease in GFR 15-29 Stage V Kidney Failure <15 CREATININE (test code=CREAT) 1.21 mg/dL 0.55-1.30 TOTAL PROTEIN (test code=PROT) 6.4 g/dL 6.4-8.2 ALBUMIN (test code=ALB) 3.5 g/dL 3.4-5.0 GLOBULIN (test code=GLOB) 2.9 g/dL 2.2-4.2 ALBUMIN/GLOBULIN RATIO (test 1.2 0.7-2.0 code=A/G) CALCIUM (test code=CA) 8.7 mg/dL 8.2-10.1 BILIRUBIN TOTAL (test 0.50 mg/dL 0.2-1.00 code=BILT) SGOT/AST (test code=AST) 14.0 U/L 15-37 SGPT/ALT (test code=ALT) 25.0 U/L 12-78 Please note new normal range. ALKALINE PHOSPHATASE TOTAL 78 U/L 46-116 (test code=ALKP) CBC W/AUTO [id number] 12:12:00 Test Item Value Reference Range Comments WHITE BLOOD CELL (test code=WBC) 5.9 K/mm3 5.7-10.5 RED BLOOD CELL (test code=RBC) 4.74 M/mm3 4.2-5.4 HEMOGLOBIN (test code=HGB) 14.0 g/dL 12-16 HEMATOCRIT (test code=HCT) 41.4 % 37-47 MEAN CELL VOLUME (test code=MCV) 87 fL 80-98 MEAN CELL HGB (test code=MCH) 29.5 pg 27-34 MEAN CELL HGB CONCENTRATION (test code=MCHC) 33.8 g/dL 30.8-34.1 RED CELL DISTRIBUTION WIDTH (test code=RDW) 12.7 % 11-16 PLT (test code=PLT) 200 K/mm3 130-400 MEAN PLATELET VOLUME (test code=MPV) 8.7 fL 8.9-12.1 NEUTROPHIL % (test code=NT%) 66.5 % 45-70 LYMPHOCYTE % (test code=LY%) 22.1 % 20-40 MONOCYTE % (test code=MO%) 7.7 % 3-10 EOSINOPHIL % (test code=EO%) 2.7 % 1-5 BASOPHIL % (test code=BA%) 0.7 % 0.0-1.1 NEUTROPHIL # (test code=NT#) 3.89 K/mm3 2.00-7.50 LYMPHOCYTE # (test code=LY#) 1.29 K/mm3 1.50-4.00 MONOCYTE # (test code=MO#) 0.45 K/mm3 0.2-0.8 EOSINOPHIL # (test code=EO#) 0.16 K/mm3 0.04-0.4 BASOPHIL # (test code=BA#) 0.04 K/mm3 0.02-0.10 MANUAL DIFF REQUIRED (test code=MDIFF) NO MANUAL DIFF NUCLEATED RED BLOOD CELL (test code=NRBC) 0 % 0-0 [id number] 05:34:00 Test Item Value Reference Range Comments RPR SCREEN (BEAKER) (test oikn=153) Nonreactive Nonreactive HEMOGLOBIN [id number] 09:52:00 Test Item Value Reference Range Comments HEMOGLOBIN A1C (BEAKER) (test eydp=234) 6.3 % 4.3-6.1 ANTI-NUCLEAR ANTIBODY (KEITH)2018-03-09 09:35:00 Test Item Value Reference Range Comments ANTI-NUCLEAR ANTIBODY (KEITH) (BEAKER) (test Negative Negative fmls=846) Test performed by IFA method.Test performed by IFA method.BASIC METABOLIC [id number] 08:59:00 Test Item Value Reference Range Comments SODIUM (BEAKER) (test 138 meq/L 136-145 mtxy=932) POTASSIUM (BEAKER) (test 4.8 meq/L 3.5-5.1 gxne=829) CHLORIDE (BEAKER) (test 104 meq/L 98-107 mtjx=445) CO2 (BEAKER) (test 25 meq/L 22-29 pzyg=464) BLOOD UREA NITROGEN 16 mg/dL 7-21 (BEAKER) (test zngb=183) CREATININE (BEAKER) (test 1.19 mg/dL 0.57-1.25 pgpa=996) GLUCOSE RANDOM (BEAKER) 118 mg/dL 70-105 (test hjov=876) CALCIUM (BEAKER) (test 9.4 mg/dL 8.4-10.2 mgcg=428) EGFR (BEAKER) (test 61 mL/min/1.73 sq m ESTIMATED GFR IS NOT fusl=8670) ACCURATE CREATININE CLEARANCE IN PREDICTING GLOMERULAR FILTRATION RATE. ESTIMATED GFR IS NOT APPLICABLE FOR DIALYSIS PATIENTS. VITAMIN B12 AND [id number] 08:57:00 Test Item Value Reference Range Comments VITAMIN B12 (BEAKER) (test uosi=601) 1040 pg/mL 213-816 FOLATE (BEAKER) (test uesp=966) 10.7 ng/mL >=7.0 TROPONIN [id number] 07:07:00 Test Item Value Reference Range Comments TROPONIN I (BEAKER) (test rrth=979) 0.03 ng/mL 0.00-0.03 Troponin I (TnI) levels must be interpreted in the context of the presenting symptoms and the clinical findings. Elevated TnI levels indicate myocardial damage, but are not specific for ischemic heart disease. Elevated TnI levels are seen in patients with other cardiac conditions (including myocarditis and congestive heart failure), and slight TnI elevations occur in patients with other conditions, including sepsis, renal failure, acidosis, acute neurological disease, and persistent tachyarrhythmia.CBC W/PLT COUNT & AUTO [id number] 06:34:00 Test Item Value Reference Range Comments WHITE BLOOD CELL COUNT (BEAKER) (test zpxc=726) 5.2 K/ L 3.5-10.5 RED BLOOD CELL COUNT (BEAKER) (test tkqj=207) 4.53 M/ L 4.63-6.08 HEMOGLOBIN (BEAKER) (test xxya=960) 14.0 GM/DL 13.7-17.5 HEMATOCRIT (BEAKER) (test ojij=405) 41.1 % 40.1-51.0 MEAN CORPUSCULAR VOLUME (BEAKER) (test ezud=667) 90.7 fL 79.0-92.2 MEAN CORPUSCULAR HEMOGLOBIN (BEAKER) (test 30.9 pg 25.7-32.2 euod=644) MEAN CORPUSCULAR HEMOGLOBIN CONC (BEAKER) (test 34.1 GM/DL 32.3-36.5 avhs=624) RED CELL DISTRIBUTION WIDTH (BEAKER) (test 12.9 % 11.6-14.4 btlh=159) PLATELET COUNT (BEAKER) (test ndkk=785) 169 K/CU MM 150-450 MEAN PLATELET VOLUME (BEAKER) (test ydts=806) 8.9 fL 9.4-12.4 NUCLEATED RED BLOOD CELLS (BEAKER) (test 0 /100 WBC 0-0 mbnp=804) NEUTROPHILS RELATIVE PERCENT (BEAKER) (test 64 % izpx=292) LYMPHOCYTES RELATIVE PERCENT (BEAKER) (test 21 % kvwd=819) MONOCYTES RELATIVE PERCENT (BEAKER) (test 9 % yzrz=218) EOSINOPHILS RELATIVE PERCENT (BEAKER) (test 4 % wdic=347) BASOPHILS RELATIVE PERCENT (BEAKER) (test 1 % cmhs=907) NEUTROPHILS ABSOLUTE COUNT (BEAKER) (test 3.31 K/ L 1.78-5.38 gycf=060) LYMPHOCYTES ABSOLUTE COUNT (BEAKER) (test 1.10 K/ L 1.32-3.57 zaxl=612) MONOCYTES ABSOLUTE COUNT (BEAKER) (test 0.48 K/ L 0.30-0.82 ixhd=225) EOSINOPHILS ABSOLUTE COUNT (BEAKER) (test 0.20 K/ L 0.04-0.54 oxqh=977) BASOPHILS ABSOLUTE COUNT (BEAKER) (test 0.04 K/ L 0.01-0.08 ysba=847) IMMATURE GRANULOCYTES-RELATIVE PERCENT (BEAKER) 0 % 0-1 (test kupt=0322) TROPONIN [id number] 02:58:00 Test Item Value Reference Range Comments TROPONIN I (BEAKER) (test lawc=778) 0.03 ng/mL 0.00-0.03 Troponin I (TnI) levels must be interpreted in the context of the presenting symptoms and the clinical findings. Elevated TnI levels indicate myocardial damage, but are not specific for ischemic heart disease. Elevated TnI levels are seen in patients with other cardiac conditions (including myocarditis and congestive heart failure), and slight TnI elevations occur in patients with other conditions, including sepsis, renal failure, acidosis, acute neurological disease, and persistent tachyarrhythmia.TROPONIN [id number] 23:05:00 Test Item Value Reference Range Comments TROPONIN I (BEAKER) (test sxkr=753) 0.03 ng/mL 0.00-0.03 Troponin I (TnI) levels must be interpreted in the context of the presenting symptoms and the clinical findings. Elevated TnI levels indicate myocardial damage, but are not specific for ischemic heart disease. Elevated TnI levels are seen in patients with other cardiac conditions (including myocarditis and congestive heart failure), and slight TnI elevations occur in patients with other conditions, including sepsis, renal failure, acidosis, acute neurological disease, and persistent tachyarrhythmia.LIPID [id number] 22:59:00 Test Item Value Reference Range Comments TRIGLYCERIDES (BEAKER) (test pemv=934) 79 mg/dL CHOLESTEROL (BEAKER) (test jrtg=120) 112 mg/dL HDL CHOLESTEROL (BEAKER) (test bajc=780) 39 mg/dL LDL CHOLESTEROL CALCULATED (BEAKER) (test 57 mg/dL beev=348) Triglyceride Reference Range: Low Risk <150 Borderline 150- 199 High Risk 200-499 Very High Risk >=500Cholesterol Reference Range: Low Risk <200 Borderline 200-239 High Risk > 240HDL Cholesterol Reference Range: Low Risk >=60 High Risk <40LDL Cholesterol Reference Range: Optimal <100 Near Optimal 100-129 Borderline 130-159 High 160-189 Very High >=190POCT-GLUCOSE [id number] 21:30:00 Test Item Value Reference Range Comments POC-GLUCOSE METER (BEAKER) 162 mg/dL 70-110 TESTED AT [facility] [address] [facility] (test zcwv=4996) [facility] [address] MR, MRA, BRAIN, WITHOUT [id number] 20:36:00Reason for exam:-> Ischemic Stroke EvaluationFINAL REPORT MRA head and neck Comparison: None Reason for exam: StrokeDiscussion: 2 D and 3-D time- of-flight MRA of the head and neck was provided with maximal intensity projection 3-D reconstructions of the cervical and intracranial arterial vasculatures. NASCET criteria are utilized when considering stenosis. The MRA neck is limited with carotid evaluation suboptimal due to motion artifact. There is grossly maintained flow in the cervical carotid systems on both sides. The carotid bifurcations appear grossly uncompromised with no stenosis by NASCET criteria. Normal flow cervical segment vertebral arteries. Normal flow intracranial internal carotid arteries and in the carotid terminus branches proximally. Normal vertebrobasilar and proximal posterior cerebral artery flow. There is a very subtle focal outpouching from the dorsal wall of the right- sided supraclinoidinternal carotid artery. Refer to MRA head source images 73 and 74. While potentially an artifact, findings are concerning for a tiny saccular aneurysm base to apex dimension approximately 1 mm. Impressions: 1. MRA neck study is limited by motion but grossly negative. 2. No flow compromise in the proximal intracranial arterial vasculature. 3. Possible tiny aneurysm dorsal aspect supraclinoid right internal carotid artery. Signed: Nahum Barron Verified Date/Time: 03/08/2018 20:36:23 MR, MRA, NECK, WITHOUT IV [id number] 20:36:00Reason for exam:->Ischemic Stroke EvaluationFINAL REPORT MRA head and neck Comparison: None Reason for exam: StrokeDiscussion: 2 D and 3-D [id number] MRA of the head and neck was provided with maximal intensity projection 3-D reconstructions of the cervical and intracranial arterial vasculatures. NASCET criteria are utilized when considering stenosis. The MRA neck is limited with carotid evaluation suboptimal due to motion artifact. There is grossly maintained flow in the cervical carotid systems on both sides. The carotid bifurcations appear grossly uncompromised with no stenosis by NASCET criteria. Normal flow cervical segment vertebral arteries. Normal flow intracranial internal carotid arteries and in the carotid terminus branches proximally. Normal vertebrobasilar and proximal posterior cerebral artery flow. There is a very subtle focal outpouching from the dorsal wall of the right-sided supraclinoidinternal carotid artery. Refer to MRA head source images 73 and 74. While potentially an artifact, findings are concerning for a tiny saccular aneurysm base to apex dimension approximately 1 mm. Impressions: 1. MRA neck study is limited by motion but grossly negative. 2. No flow compromise in the proximal intracranial arterial vasculature. 3. Possible tiny aneurysm dorsal aspect supraclinoid right internal carotid artery. Signed: [facility]ron [facility] Verified Date/Time: 04/2018 20:36:23 Electronically signed by: NAHUM BARRON M.D. on 2017 08:36 PMMR, BRAIN, WITHOUT [id number] 20:32:00Reason for exam:-> Ischemic Stroke EvaluationFINAL REPORT MRI brain Comparison: None Reason for exam: Ischemic Stroke EvaluationIschemic Stroke Evaluation Discussion: Multiplanar MR imaging the brain was performed using T1, T2, FLAIR, FFE, diffusion, and ADC map imaging. There are no intracranial hematomas, mass effect, hydrocephalus, shift, or extra-axial collections. Mild chronic microvascular changes are seen inboth cerebral hemispheres. There is a very small linear infarct of the lateral left cerebellum with diffusion restriction. There are no other areas of abnormal diffusion restriction. Flow-voids are seen in the basilar and internal carotid arteries as well as in the large posterior dural sinuses. The pineal, sella, and craniocervical junction regions are unremarkable. The visualized orbital contents,paranasal sinuses, skullbase and surrounding soft tissues are unremarkable. . Impressions: Smalldiffusion restricted recent infarct left lateral cerebellar swelling. No hematoma or mass effect. Otherwise unremarkable for age cranial MRI. Signed: Nahum Barron Verified Date/Time: 2017 20:32:56
[2019-08-21 06:00] LABS: Absolute Lymphocytes (CBC) 0.5 K/uL (0.7-4.9); Basophils % 0.2 % (0-1.3); Lymphocytes % 3.3 % (15.3-44.8); MPV 7.1 fL (7.6-11.3); RBC Red Blood Cell Count 4.63 M/uL (4.33-5.43)
[2019-08-21 06:11] LABS: Protime INR 4.35
[2019-08-21 06:28] LABS: ALT/SGPT 28 U/L (12-78); AST/SGOT 21 U/L (15-37); Albumin 2.8 g/dL (3.4-5.0); Alkaline Phosphatase 78 U/L (45-117); BUN Blood Urea Nitrogen 26 mg/dL (7-18); Bicarbonate 26 mmol/L (21-32); Bilirubin Direct 0.2 mg/dL (0-0.2); Bilirubin Total 0.6 mg/dL (0.2-1.0); Glucose Level 229 mg/dL (74-106); Magnesium 1.8 mg/dL (1.8-2.4); NT PRO-BNP 4011 pg/mL (<125); Protein, Total 7.1 g/dL (6.4-8.2); Sodium Level 132 mmol/L (136-145); Troponin (Emerg Dept Use Only) < 0.02 ng/mL (0.0-0.045)
[2019-08-21 06:33] LABS: Potassium 5.6 mmol/L (3.5-5.1)
--- NOTE | 2019-08-21 07:10 | RAD REPORT ---
EXAM DESCRIPTION: CT - Head Brain Wo Cont - 08/21/2019 6:58 am CLINICAL HISTORY: Weakness, dizziness COMPARISON: CT head February 2018 TECHNIQUE: Axial 5 mm thick images of the head were obtained without IV contrast. All CT scans are performed using dose optimization technique as appropriate and may include automated exposure control or mA/KV adjustment according to patient size. FINDINGS: No intracranial hemorrhage, mass, edema or shift of mid-line structures. No acute cortical based infarction identifiable. No cortical edema or sulcal effacement. Mild white matter chronic isc hemic changes noted. Pattern is similar to comparison. No abnormal extra-axial fluid collections. Dat tricles are in proportion to any minimal volume loss. Mastoid air cells and visualized portions of the paranasal sinuses are clear. No acute bony findings. IMPRESSION: No hemorrhage or other acute intracranial finding identified. Mild chronic ischemic changes. Chronic ischemic changes can mask nonhemorrhagic acute infarction. MR brain followup can be obtained if there is ongoing concern for acute ischemia.
--- NOTE | 2019-08-21 07:15 | ER ---
Nurse's Notes [facility] Name: Yves Dos Santos Age: 68 yrs Sex: Male : 1950 Arrival Date: 08/21/2019 Time: 05:17 Bed 2 Private MD: Diagnosis: Weakness;elevated inr;Chronic kidney disease (CKD) Presentation: 08/21 05:20 Presenting complaint: EMS states: Patient attempted to get out of bed, felt weak, slid lp1 to ground, EMS called by ; Patient denies any pain, injuries; Complaint of generalized weakness that began about 2 weeks ago. Transition of care: patient was not received from another setting of care. Onset of symptoms was August 21, 2019. Risk Assessment: Do you want to hurt yourself or someone else? Patient reports no desire to harm self or others. Initial Sepsis Screen: Does the patient meet any 2 criteria? No. Patient's initial sepsis screen is negative. Does the patient have a suspected source of infection? No. Patient's initial sepsis screen is negative. Care prior to arrival: Glucose check: 250. 05:20 Method Of Arrival: EMS: [facility] 1 05:20 Acuity: JIMY 3 lp1 Historical: - Allergies: 05:30 Beta-Blockers (Beta-Adrenergic Blocking Agts); lp1 - Home Meds: 05:30 metformin 500 mg oral tab 1 tab 2 times per day [Active]; losartan 25 mg oral tab 1 tab lp1 once daily [Active]; meloxicam 7.5 mg oral tab 1 tab twice a day [Active]; diltiazem HCl 180 mg Oral cp24 1 cap once daily [Active]; warfarin 10 mg Oral tab 1 tab once daily [Active]; oxybutynin chloride 5 mg Oral tab 1 tab 2 times per day [Active]; - PMHx: 05:30 Atrial Fib; Diabetes - NIDDM; Hypertension; asbestos; lp1 - PSHx: 05:30 Knee surgery; Gastric clamp; R hip replacement; lp1 05:31 Cholecystectomy; lp1 - Immunization history:: Adult Immunizations up to date. - Social history:: Smoking status: Patient denies any tobacco usage or history of. - Ebola Screening: : No symptoms or risks identified at this time. Screenin:38 Abuse screen: Denies threats or abuse. Nutritional screening: No deficits noted. vc Tuberculosis screening: No symptoms or risk factors identified. Fall Risk Fall in past 12 months (25 points). Secondary diagnosis (15 points) TIA, IV access (20 points). Ambulatory Aid- Crutches/Cane/Walker (15 pts). Total Bledsoe Fall Scale indicates High Risk Score (45 or more points). Fall prevention measures have been instituted. Side Rails Up X 2 Placed Close to Nursing Station Family Present and informed to notify staff if the need to leave the bedside. Assessment: 05:35 General: Appears in no apparent distress. uncomfortable, Behavior is calm, cooperative. vc Pain: Denies pain. Neuro: Level of Consciousness is awake, alert, obeys commands, Oriented to person, place, time, situation. Cardiovascular: Clubbing of nail beds is present Patient's skin is warm and dry. Respiratory: Airway is patent Respiratory effort is even, unlabored. GI: Abdomen is non-distended, obese. : No signs and/or symptoms were reported regarding the genitourinary system. EENT: No deficits noted. Derm: Skin with poor turgor Skin is dry, Purple discoloration to bilateral legs. Musculoskeletal: Reports weakness in right arm and right leg. 06:18 Reassessment: Patient and/or family updated on plan of care and expected duration. Pain vc level reassessed. patient placed on 2L nc. Patients states that patient has sleep apnea but does not use his cpap. Patient denies pain at this time. 06:30 Reassessment: Patient to CT via stretcher. vc 06:55 Reassessment: patient returned from CT. at bedside. vc 08:02 Reassessment: Pt resting comfortably with eyes closed, VSS. Family remains at bedside. Admission ordered, awaiting room assignment at this time. . 09:00 Reassessment: Patient appears in no apparent distress at this time. No changes from previously documented assessment. Patient and/or family updated on plan of care and expected duration. Pain level reassessed. 09:02 Reassessment: Attempted to call report to floor, receiving nurse unavailable at this time. Vital Signs: 05:23 BP 129 / 72; Pulse 115; Resp 20; Temp 99.3(O); Pulse Ox 97% on R/A; Weight 210.92 kg lp1 (R); Height 6 ft. 2 in. (187.96 cm); Pain 0/10; 06:17 BP 109 / 59; Pulse 96; Resp 25; Pulse Ox 92% on R/A; Pain 0/10; vc 06:56 BP 161 / 99; Pulse 121; Resp 22; Pulse Ox 93% on R/A; vc 08:01 BP 136 / 98; Pulse 92; Resp 20; Pulse Ox 97% on 2 lpm NC; hb 09:02 BP 148 / 97; Pulse 88; Resp 18; Pulse Ox 97% 2 lpm ; Pain 0/10; hb 05:23 Body Mass Index 59.70 (210.92 kg, 187.96 cm) lp1 ED Course: 05:17 Patient arrived in ED. aa1 05:21 Frank Guerra MD is Attending Physician. tw4 05:23 Triage completed. lp1 05:23 Arm band placed on. lp1 05:31 Patient has correct armband on for positive identification. Placed in gown. Bed in low lp1 position. court monitor on. Pulse ox on. NIBP on. 05:32 XRAY Chest (1 view) In Process Unspecified. EDMS 05:34 Cheryl Bae RN is Primary Nurse. vc 06:58 CT Head Brain wo Cont In Process Unspecified. EDMS 07:14 Kendra Rucker MD is Hospitalizing Provider. tw4 09:32 No provider procedures requiring assistance completed. Patient admitted, IV remains in hb place. Administered Medications: No medications were administered Outcome: 07:14 Decision to Hospitalize by Provider. tw4 09:32 Admitted to Med/surg accompanied by tech, family with patient, via stretcher, room 211, with oxygen, with chart. 09:32 Condition: stable 09:32 Instructed on the need for admit, Demonstrated understanding of instructions. 09:39 Patient left the ED. hb Signatures: Dispatcher [employer] EDMS Marla Willoughby RN RN aa1 Marleny Matamoros RN RN lp1 Marilu Eden RN RN Frank Guerra MD MD tw4 Cheryl Bae RN RN vc
--- NOTE | 2019-08-21 07:15 | EDPHYS ---
Physician Documentation [facility] Name: Yves Dos Santos Age: 68 yrs Sex: Male : 1950 Arrival Date: 08/21/2019 Time: 05:17 Bed 2 Private MD: ED Physician Frank Guerra HPI: 08/21 06:57 This 68 yrs old Male presents to ER via EMS with complaints of General tw4 Weakness. 06:57 The patient's problem is reported as weakness, in the right upper extremity, in the tw4 right lower extremity. Onset: The symptoms/episode began/occurred 2 week(s) ago. Duration: The episode is continuous. Context: the episode(s) was witnessed, by family, symptoms became apparent. The symptoms are alleviated by nothing. The symptoms are aggravated by nothing. Associated signs and symptoms: The patient has no apparent associated signs or symptoms. Severity of symptoms: At their worst the symptoms were moderate in the emergency department the symptoms have resolved. The patient has not experienced similar symptoms in the past. Historical: - Allergies: 05:30 Beta-Blockers (Beta-Adrenergic Blocking Agts); lp1 - Home Meds: 05:30 metformin 500 mg oral tab 1 tab 2 times per day [Active]; losartan 25 mg oral tab 1 tab lp1 once daily [Active]; meloxicam 7.5 mg oral tab 1 tab twice a day [Active]; diltiazem HCl 180 mg Oral cp24 1 cap once daily [Active]; warfarin 10 mg Oral tab 1 tab once daily [Active]; oxybutynin chloride 5 mg Oral tab 1 tab 2 times per day [Active]; - PMHx: 05:30 Atrial Fib; Diabetes - NIDDM; Hypertension; asbestos; lp1 - PSHx: 05:30 Knee surgery; Gastric clamp; R hip replacement; lp1 05:31 Cholecystectomy; lp1 - Immunization history:: Adult Immunizations up to date. - Social history:: Smoking status: Patient denies any tobacco usage or history of. - Ebola Screening: : No symptoms or risks identified at this time. ROS: 06:57 Constitutional: Negative for fever, chills, and weight loss, Eyes: Negative for injury, tw4 pain, redness, and discharge, Cardiovascular: Negative for chest pain, palpitations, and edema, Respiratory: Negative for shortness of breath, cough, wheezing, and pleuritic chest pain, Abdomen/GI: Negative for abdominal pain, nausea, vomiting, diarrhea, and constipation, Back: Negative for injury and pain, MS/Extremity: Negative for injury and deformity, Skin: Negative for injury, rash, and discoloration. 06:57 Neuro: Positive for weakness, Negative for altered mental status, dizziness, gait disturbance, headache, hearing loss, seizure activity, speech changes, syncope, near syncope. Exam: 06:57 Constitutional: This is a well developed, well nourished patient who is awake, alert, tw4 and in no acute distress. Head/Face: Normocephalic, atraumatic. Chest/axilla: Normal chest wall appearance and motion. Nontender with no deformity. No lesions are appreciated. Cardiovascular: Regular rate and rhythm with a normal S1 and S2. No gallops, murmurs, or rubs. Normal PMI, no JVD. No pulse deficits. Respiratory: Lungs have equal breath sounds bilaterally, clear to auscultation and percussion. No rales, rhonchi or wheezes noted. No increased work of breathing, no retractions or nasal flaring. Abdomen/GI: Soft, non-tender, with normal bowel sounds. No distension or tympany. No guarding or rebound. No evidence of tenderness throughout. Back: No spinal tenderness. No costovertebral tenderness. Full range of motion. MS/ Extremity: Pulses equal, no cyanosis. Neurovascular intact. Full, normal range of motion. 07:15 Radiologist reports: chronic changes tw4 Vital Signs: 05:23 BP 129 / 72; Pulse 115; Resp 20; Temp 99.3(O); Pulse Ox 97% on R/A; Weight 210.92 kg lp1 (R); Height 6 ft. 2 in. (187.96 cm); Pain 0/10; 06:17 BP 109 / 59; Pulse 96; Resp 25; Pulse Ox 92% on R/A; Pain 0/10; vc 06:56 BP 161 / 99; Pulse 121; Resp 22; Pulse Ox 93% on R/A; vc 08:01 BP 136 / 98; Pulse 92; Resp 20; Pulse Ox 97% on 2 lpm NC; hb 09:02 BP 148 / 97; Pulse 88; Resp 18; Pulse Ox 97% 2 lpm ; Pain 0/10; hb 05:23 Body Mass Index 59.70 (210.92 kg, 187.96 cm) lp1 MDM: 05:21 Patient medically screened. tw4 06:57 Differential diagnosis: CVA, TIA, metabolic disorder. Data reviewed: vital signs, tw4 nurses notes. Data interpreted: Pulse oximetry: Interpretation: normal. Counseling: I had a detailed discussion with the patient and/or guardian regarding: the historical points, exam findings, and any diagnostic results supporting the discharge/admit diagnosis. 08/21 05:21 Order name: Basic Metabolic Panel; Complete Time: 06:59 08/21 06:59 Interpretation: Normal except: CRE 1.55; K 5.6; NA 132; GFR 45. 08/21 05:21 Order name: CBC with Diff; Complete Time: 09:02 08/21 07:00 Interpretation: Normal except: WBC 15.2; HGB 13.4; MCV 86.4; MPV 7.1; RINKU% 90.8; LYM% tw4 3.3; NEUT A 13.8; LYMA 0.5. 08/21 05:21 Order name: LFT's; Complete Time: 06:59 08/21 06:59 Interpretation: Normal except: ALB 2.8; GLOB 4.3; A/G 0.7. 08/21 05:21 Order name: Magnesium; Complete Time: 06:59 08/21 07:00 Interpretation: Within normal limits: MG 1.8. 08/21 05:21 Order name: NT PRO-BNP; Complete Time: 06:59 08/21 06:59 Interpretation: Within normal limits: NT PRO-BNP 4011. 08/21 05:21 Order name: PT-INR; Complete Time: 06:59 08/21 07:00 Interpretation: Normal except: INR 4.35; PT 48.5. 08/21 05:21 Order name: Troponin (emerg Dept Use Only); Complete Time: 06:59 08/21 07:00 Interpretation: TROPED < 0.02. 08/21 06:03 Order name: CBC Smear Scan; Complete Time: 09:02 EDDE 08/21 07:13 Order name: CK; Complete Time: 09:02 08/21 07:46 Order name: CBC with Automated Diff EDMS 08/21 07:46 Order name: CBC with Automated Diff EDMS 08/21 07:46 Order name: CBC with Automated Diff EDMS 08/21 07:46 Order name: Comprehensive Metabolic Panel EDMS 08/21 07:46 Order name: Comprehensive Metabolic Panel EDMS 08/21 05:21 Order name: XRAY Chest (1 view); Complete Time: 09:02 08/21 05:21 Order name: EKG; Complete Time: 05:23 08/21 05:21 Order name: Cardiac monitoring; Complete Time: 05:34 08/21 05:21 Order name: EKG - Nurse/Tech; Complete Time: 05:34 08/21 05:21 Order name: IV Saline Lock; Complete Time: 05:34 08/21 05:21 Order name: Labs collected and sent; Complete Time: 05:34 08/21 06:10 Order name: CT Head Brain wo Cont; Complete Time: 07:11 08/21 07:46 Order name: CONS Pharmacy Consult EDMS 08/21 07:46 Order name: Consistent Carb (ADA) 1800 Tim EDMS 08/21 07:46 Order name: Comprehensive Metabolic Panel EDMS 08/21 07:46 Order name: Creatine Phosphokinase EDDE 08/21 07:46 Order name: Creatine Phosphokinase EDMS 08/21 07:46 Order name: Creatine Phosphokinase EDMS 08/21 07:46 Order name: Creatine Phosphokinase EDMS 08/21 07:46 Order name: Protime (+INR) EDMS 08/21 07:46 Order name: Protime (+INR) EDMS 08/21 05:21 Order name: O2 Per Protocol; Complete Time: 05:34 08/21 05:21 Order name: O2 Sat Monitoring; Complete Time: 05:34 tw4 EC:13 Rate is 110 beats/min. Rhythm is irregularly irregular, A fib. QRS [place] is Normal. [place] tw4 interval is normal. QRS interval is normal. QT interval is normal. No Q waves. No ST changes noted. Clinical impression: Atrial Fibrillation. Interpreted by me. Reviewed by me. Administered Medications: No medications were administered Disposition: 08/21/19 07:14 Hospitalization ordered by Kendra Rucker for Inpatient Admission. Preliminary diagnosis are Weakness, elevated inr, Chronic kidney disease (CKD). - Bed requested for Telemetry/MedSurg (Inpatient). - Status is Inpatient Admission. hb - Condition is Stable. - Problem is new. - Symptoms are unchanged. UTI on Admission? No Signatures: Dispatcher [employer] EDMS True Ragland MD MD rn Martinez, Eric em1 Marleny Matamoros RN RN lp1 Marilu Eden RN RN Frank Guerra MD MD tw4 Corrections: (The following items were deleted from the chart) 08:52 07:14 Hospitalization Ordered by Kendra Rucker MD for Inpatient Admission. Preliminary em1 diagnosis is Weakness; elevated inr; Chronic kidney disease (CKD). Bed requested for Telemetry/MedSurg (Inpatient). Status is Inpatient Admission. Condition is Stable. Problem is new. Symptoms are unchanged. UTI on Admission? No. tw4 09:39 08:52 08/21/2019 07:14 Hospitalization Ordered by Kendra Rucker MD for Inpatient hb Admission. Preliminary diagnosis is Weakness; elevated inr; Chronic kidney disease (CKD). Bed requested for Telemetry/MedSurg (Inpatient). Status is Inpatient Admission. Condition is Stable. Problem is new. Symptoms are unchanged. UTI on Admission? No. em1
[2019-08-21 07:16] LABS: Blood Morphology Comment NOT SEEN (NOT SEEN); Platelet Estimate ADEQ; Urine White Blood Cell Casts OK
[2019-08-21] MEDS ORDERED: ACETAMINOPHEN 500 MG TAB PO PRN (07:43)
[2019-08-21] MEDS ORDERED: ONDANSETRON 4 MG/2 ML VIAL IV PRN (07:43)
--- NOTE | 2019-08-21 07:52 | RAD REPORT ---
EXAM DESCRIPTION: RAD - Chest Single View - 08/21/2019 5:34 am CLINICAL HISTORY: COUGH, shortness of breath, fall COMPARISON: Chest Pa And Lat (2 Views) dated 03/07/2018; CHEST SINGLE VIEW dated 01/01/2014 TECHNIQUE: AP portable chest image was obtained 08/21/2019 5:34 am . FINDINGS: No peripheral mass or consolidation. Lung markings are accentuated by a more shallow inspi ratory effort and more under penetrated portable film technique. Pulmonary arteries are enlarged as a baseline. No significant failure or volume overload. Heart and vasculature are normal. No measurable pleural effusion and no pneumothorax. No acute bony abnormality seen. No acute aortic findings suspe cted. IMPRESSION: No peripheral mass or consolidation. No acute chest finding suspected.
[2019-08-21 10:21] VITALS: BMI 59.4
[2019-08-21] MEDS: NA CHLORIDE 0.9% 1,000 ML IV SCH ×2 (10:45→21:00)
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
[2019-08-21] MEDS: INSULIN -REGULAR HUMAN 50 UNIT/0.5 ML ML SQ SCH ×3 (11:30→21:00)
[2019-08-21 11:40] LABS: Arterial Blood Carboxyhemoglob 1.5 % (0-1.5); Blood Gas Oxyhemoglobin 91.8 % (94-97); Blood O2 Saturation 93.8 % (92-98.5)
[2019-08-21] MEDS ORDERED: Pharmacy Consult 1 EA XX PRN (12:07)
--- NOTE | 2019-08-21 13:38 | EKG ---
Test Date: 2019-08-21 Test Time: 05:23:47 Acrobatic Rigger: JAVIER MEASUREMENT RESULTS: Intervals: Rate: 110 [place]: QRSD: 90 QT: 310 QTc: 419 [place]: P: [place]: QRS: 11 T: 23 INTERPRETIVE STATEMENTS: Atrial fibrillation with rapid ventricular response Abnormal ECG Compared to ECG 03/07/2018 16:14:12 Sinus bradycardia no longer present Electronically Signed On 08-21-19 13:37:01 RIVETER by Alden Villareal
[2019-08-21] MEDS: IPRATROPIUM BROM 0.5MG/2.5ML NEB SCH ×2 (13:40→20:00)
[2019-08-21] MEDS: ALBUTEROL 2.5 MG/3 ML NEB SOL NEB SCH ×2 (13:40→20:00)
[2019-08-21] MEDS: VANCOMYCIN 2 GM in NA CHLORIDE 0.9% 500 ML IVPB SCH (13:40)
[2019-08-21 17:43] LABS: Urine Appearance CLEAR; Urine Blood TRACE (NEG); Urine Color DK YELLOW; Urine Glucose NEGATIVE (NEG); Urine Protein NEGATIVE (NEG); Urine Specific Gravity >=1.030 (1.005-1.030); Urine pH 5.5 (5.0-7.0)
[2019-08-21 17:43] LABS: Potassium 4.7 mmol/L (3.5-5.1)
[2019-08-21 18:10] LABS: Urine Bilirubin NEGATIVE (NEG); Urine Microscopic Reflex ORDER UMIC
[2019-08-21 18:39] LABS: Urine Amorphous Sediment 1+ /HPF (NONE SEEN); Urine Bacteria 20-50 /HPF (NONE SEEN); Urine Culture Reflex Order NOT NEEDED; Urine Mucus 1+ /HPF (NONE SEEN)
[2019-08-21] MEDS: TAMSULOSIN 0.4 MG SR CAP PO SCH (20:06)
[2019-08-21] MEDS: OXYBUTYNIN CHLORIDE 5 MG TAB PO SCH (20:06)
[2019-08-21] MEDS: CEFEPIME/SWI 1gm 10 ML IV SCH (20:07)
[2019-08-21] MEDS ORDERED: CEFEPIME 1 GM/VIAL IV SCH (21:00)
[2019-08-21] MEDS ORDERED: GABAPENTIN 300 MG CAP PO SCH (21:00)
[2019-08-22] MEDS: ALBUTEROL 2.5 MG/3 ML NEB SOL NEB SCH ×4 (02:00→20:05)
[2019-08-22] MEDS: IPRATROPIUM BROM 0.5MG/2.5ML NEB SCH ×4 (02:00→20:05)
[2019-08-22 06:09] LABS: Albumin 2.4 g/dL (3.4-5.0); Bilirubin Total 0.4 mg/dL (0.2-1.0); Potassium 5.2 mmol/L (3.5-5.1); Protein, Total 6.4 g/dL (6.4-8.2)
[2019-08-22 06:16] LABS: Protime INR 4.7
[2019-08-22 06:18] LABS: Basophils % 0.4 % (0-1.3); Hematocrit 36.9 % (39.6-49.0); Lymphocytes % 11.3 % (15.3-44.8); RBC Red Blood Cell Count 4.24 M/uL (4.33-5.43)
[2019-08-22] MEDS: NA CHLORIDE 0.9% 1,000 ML IV SCH ×3 (07:00→20:30)
[2019-08-22] MEDS: INSULIN -REGULAR HUMAN 50 UNIT/0.5 ML ML SQ SCH ×4 (07:30→20:32)
[2019-08-22] MEDS: OXYBUTYNIN CHLORIDE 5 MG TAB PO SCH ×2 (08:19→20:31)
[2019-08-22] MEDS: CEFEPIME/SWI 1gm 10 ML IV SCH ×2 (08:19→20:31)
[2019-08-22] MEDS ORDERED: DILTIAZEM HCL 180 MG SR CAP PO SCH (09:00)
[2019-08-22] MEDS ORDERED: ACETAMINOPHEN 325 MG TABLET PO PRN (12:40)
[2019-08-22] MEDS: ACETAMINOPHEN 325 MG TABLET PO PRN (13:07)
[2019-08-22] MEDS: GABAPENTIN 300 MG CAP PO SCH ×2 (13:07→20:30)
--- NOTE | 2019-08-22 13:07 | P.PN ---
Subjective Date of Service: 08/22/19 Chief Complaint: Generalized weakness More awake, mild improvement. Reports that he is still not feeling well, unable to elaborate. Nursing was unable to pass hernandes despite multiple attempt, now urinating however with hesitancy. Physical Examination - Vital Signs Temperature: 98.8 F Blood Pressure: 123/77 Pulse: 101 Respirations: 19 Pulse Ox (%): 95 - Physical Exam General: Alert, In no apparent distress, Obese HEENT: Atraumatic, PERRLA, EOMI Neck: Supple, JVD not distended Respiratory: Clear to auscultation bilaterally, Normal air movement Cardiovascular: Regular rate/rhythm, Normal S1 S2 Gastrointestinal: Normal bowel sounds, Soft and benign, No tenderness, No masses (Obese.) Musculoskeletal: No tenderness Integumentary: Rash(es), Tenderness/swelling, Erythema Neurological: Normal speech, Normal tone, Normal affect Lymphatics: No axilla or inguinal lymphadenopathy - Studies Laboratory Tests 08/22/19 08/22/19 08/22/19 05:29 05:29 05:29 WBC 8.5 D RBC 4.24 L Hgb 12.4 L Hct 36.9 L Plt Count 265 D PT 52.3 H INR 4.70 H* Sodium 133 L Potassium 5.2 H BUN 23 H Creatinine 1.17 Estimated GFR 62 L Glucose 155 H Laboratory Tests 08/21/19 17:25 Urine Color Dk yellow Urine Nitrite Negative Ur Leukocyte Esterase Negative Urine WBC <5 Ur Squamous Epith Cells <5 Urine Bacteria 20-50 H Microbiology Data (last 24 hrs): Microbiology 08/21/19 12:35 Blood - Blood Aerobic Blood Culture - Preliminary 08/21/19 12:35 Blood - Blood Anaerobic Blood Culture - Preliminary No growth in 24 hours. No growth in 24 hours. 08/21/19 12:20 Blood - Blood Aerobic Blood Culture - Preliminary 08/21/19 12:20 Blood - Blood Anaerobic Blood Culture - Preliminary No growth in 24 hours. No growth in 24 hours. Assessment And Plan - Plan Mr. Dos Santos is a 68-year-old morbidly obese male presented with generalized weakness. #Generalized weakness-multifactorial. Possibly underlining infection. -Improved. - PT/OT #Sepsis presented on admission secondary to suspected cellulitis of the right lower extremity-Met SIRS criteria with leukocytosis and tachycardia. Urinalysis is not suggestive of UTI, will follow urine culture. Chest x-ray is unremarkable. -blood cultures ordered stat. Urine culture to be followed. -IV hydration, volume status have improved. -IV antibiotics, broad spectrum. Will narrow down once the cultures results. #Encephalopathy-metabolic, due to suspected acute infection. Blood gas with normal CO2. Ammonia level is unremarkable. -Patient was on 900mg BID neurontin at home, now on hold. He is requesting restart, will resume at a lower dose. -monitor patient closely. #Acute kidney injury-prerenal azotemia in the setting of acute sepsis. pt with poor po intake for 2 weeks. -IV hydration and trend creatinine. Minimize use of from nephrotoxins. -Monitor urine output. -Cr is improving. Obtain CT abdomen/pelvis to evaluate uropathy. initiated on flomax. #DAMI- likely contributing to patient's inability to stay awake during the day. -CPAP ordered. Respiratory therapist consulted. -Pt refused CPAP. Compliance advised. # Hypertension-continue holding lisinopril given ELIN. -monitor blood pressure closely, will use IV hydralazine p.r.n. #Diabetes mellitus-BG AC and HS and cover with insulin sliding scale. -hemoglobin A1c 6.7. Hold metformin due to ELIN. # Hyperkalemia-secondary to ELIN. Will treat medically again. -repeat BMP #Chronic atrial fibrillation-status post ablation 15 years ago. Now in chronic AFib, requiring oral anti coagulation. -worsened INR at 4.35-> 4.7. Patient with significantly poor p.o. intake, abx is also contributing to prolonged INR -no evidence of acute bleeding. Will monitor H&H closely. -obviously hold Coumadin for now. #DVT ppx- coagulopathic #GI ppx- famotidine Patient is full code. His spouse is NOK. Plan to discharge in: 48 Hours
[2019-08-22] MEDS: VANCOMYCIN 2 GM in NA CHLORIDE 0.9% 500 ML IVPB SCH (13:10)
--- NOTE | 2019-08-22 15:38 | RAD REPORT ---
EXAM DESCRIPTION: CT - Abdomen Pelvis Wo Contrast - 08/22/2019 3:22 pm CLINICAL HISTORY: Abd distention, inability to pass hernandes COMPARISON: No comparisons TECHNIQUE: Axial [address] imaging of the abdomen and pelvis was performed without IV contrast. No IV contrast was given because of allergy, abnormal renal function, patient refusal or physician re quest. No oral contrast All CT scans are performed using dose optimization technique as appropriate and may include automated exposure control or mA/KV adjustment according to patient size. FINDINGS: No suspicious findings in the lung bases. The liver, spleen and pancreas show no suspicious findings on non-contrast imaging. Gallbladder is ab sent. No biliary tree dilatation. No hydronephrosis or suspicious renal mass. No obstructing or nonobstructing calculi. No significant adrenal finding. Isodense renal masses and pyelonephritis cannot be excluded in the absence of IV con trast. Partially filled urinary bladder shows no suspicious finding. Prostate gland is not appear abn ormally enlarged. The pelvic floor assessment is limited due to significant spray artifact from the r ight hip prosthesis. No gross abnormality seen that would restrict Hernandes catheter placement. No dilated bowel loops or bowel wall thickening. Lab band surgical changes are noted. No dilated larg e or small bowel loop. No acute GI findings seen. No free air, free fluid or inflammatory stranding. No hernia, mass or bulky lymphadenopathy. Prominent bony degenerative changes are present. No acute findings seen. IMPRESSION: Partially filled urinary bladder shows no suspicious finding. Prostate gland is not appe ar abnormally enlarged. No hydronephrosis or acute renal finding. [place] artifact from right hip prosthesis limits pelvic for detail. No abnormality seen that would res trict passage of the Hernandes catheter. No acute abdominal or pelvic finding. Full assessment is limited is the absence of IV contrast.
[2019-08-22] MEDS: TAMSULOSIN 0.4 MG SR CAP PO SCH (20:30)
[2019-08-23] MEDS: IPRATROPIUM BROM 0.5MG/2.5ML NEB SCH ×2 (01:45→08:00)
[2019-08-23] MEDS: ALBUTEROL 2.5 MG/3 ML NEB SOL NEB SCH ×2 (01:45→08:00)
[2019-08-23 05:36] LABS: Absolute Lymphocytes (CBC) 0.8 K/uL (0.7-4.9); Basophils % 0.7 % (0-1.3); Hematocrit 35.8 % (39.6-49.0); Lymphocytes % 12.4 % (15.3-44.8); MPV 6.9 fL (7.6-11.3); RBC Red Blood Cell Count 4.19 M/uL (4.33-5.43)
[2019-08-23 05:39] LABS: Protime INR 3.64
[2019-08-23 05:54] LABS: Albumin 2.4 g/dL (3.4-5.0); Bilirubin Total 0.5 mg/dL (0.2-1.0); Potassium 4.9 mmol/L (3.5-5.1); Protein, Total 6.5 g/dL (6.4-8.2)
[2019-08-23] MEDS: NA CHLORIDE 0.9% 1,000 ML IV SCH (06:07)
[2019-08-23] MEDS: INSULIN -REGULAR HUMAN 50 UNIT/0.5 ML ML SQ SCH ×2 (07:30→11:30)
[2019-08-23] MEDS: CEFEPIME/SWI 1gm 10 ML IV SCH (08:48)
[2019-08-23] MEDS: GABAPENTIN 300 MG CAP PO SCH (08:49)
[2019-08-23] MEDS: OXYBUTYNIN CHLORIDE 5 MG TAB PO SCH (08:49)
[2019-08-23 11:59] VITALS: O2SAT 96
[2019-08-23] MEDS: ACETAMINOPHEN 325 MG TABLET PO PRN (13:53)
--- NOTE | 2019-08-23 13:57 | P.DS ---
Admission Date: 08/22/19 Discharge Date: 08/23/19 Disposition: ROUTINE DISCHARGE Discharge Condition: FAIR Reason for Admission: Generalized weakness Brief History of Present Illness: Patient admitted with generalized weakness and some fever Hospital Course: Patient did well during the course of her stay no evidence of sepsis blood and urine cultures negative PT an INR very high chemistries unremarkable On examination position alert oriented responsive cooperative vital signs all stable no fever chest clear cardiovascular system os sounds normal abdomen soft extremities no edema plan to ambulate and discharged to follow up will with his primary care physician at the [facility] as is PT INR is very high I have instructed him to hold the Coumadin for now patient to follow up this week at the [facility] and for a physician to review and gave instructions regarding the dose of the Coumadin urine culture is also negative patient's chest x-rays clear head CT negative possibly large prostate Vital Signs/Physical Exam: Temp Pulse Resp BP Pulse Ox 98.7 F 92 H 20 159/66 H 97 08/23/19 04:00 08/23/19 04:00 08/23/19 04:00 08/23/19 04:00 08/23/19 04:00 Laboratory Data at Discharge: WBC 6.5 K/uL (4.3-10.9) D 08/23/19 05:20 Hgb 12.0 g/dL (13.6-17.9) L 08/23/19 05:20 Hct 35.8 % (39.6-49.0) L 08/23/19 05:20 Plt Count 301 K/uL (152-406) 08/23/19 05:20 PT 40.9 SECONDS (9.5-12.5) H 08/23/19 05:20 INR 3.64 08/23/19 05:20 Sodium 135 mmol/L (136-145) L 08/23/19 05:20 Potassium 4.9 mmol/L (3.5-5.1) 08/23/19 05:20 BUN 18 mg/dL (7-18) 08/23/19 05:20 Creatinine 1.08 mg/dL (0.55-1.3) 08/23/19 05:20 Glucose 152 mg/dL (74-106) H 08/23/19 05:20 Magnesium 1.8 mg/dL (1.8-2.4) 08/21/19 05:20 Total Bilirubin 0.5 mg/dL (0.2-1.0) 08/23/19 05:20 AST 25 U/L (15-37) 08/23/19 05:20 ALT 34 U/L (12-78) 08/23/19 05:20 Alkaline Phosphatase 70 U/L (45-117) 08/23/19 05:20 Home Medications: Albuterol Sulfate [Proair Hfa] 2 puff IH TID PRN 03/07/18 Gabapentin [Neurontin] 900 mg PO BID 03/07/18 Meloxicam [Mobic] 1 tab PO BID 03/07/18 Metformin HCl [Glucophage*] 500 mg PO BID 03/07/18 Oxybutynin Chloride [Ditropan*] 10 mg PO BID 03/07/18 Diltiazem HCl [Diltiazem ER] 180 mg PO DAILY 08/21/19 Losartan Potassium [Cozaar] 25 mg PO DAILY 08/21/19 Metformin HCl [Glucophage*] 500 mg PO DAILY WITH BREAKFAST 08/21/19 Patient Discharge Instructions: [facility] to [facility] Diet: Regular Activity: Ad angelica
[2019-08-23 15:13] VITALS: BP 100/78; TEMP 99
== END 2019-08-23 15:45 | disposition home or self-care (01) | DRG 947 ==
LOC: ER 05:14 → ERHOLD 07:44 → 2ND 09:34 → OBSVTOIN 08-22 13:12
PROVIDERS: ADMIT Hospitalist; ATTEND Hospitalist
DX: R53.1 Weakness (principal); G93.41 Metabolic encephalopathy; L03.115 Cellulitis of right lower limb; N17.9 Acute kidney failure, unspecified; I48.20 Chronic atrial fibrillation, unspecified; Z68.43 Body mass index [BMI] 50.0-59.9, adult; G47.33 Obstructive sleep apnea (adult) (pediatric); I10 Essential (primary) hypertension; E11.9 Type 2 diabetes mellitus without complications; E87.5 Hyperkalemia; Z79.01 Long term (current) use of anticoagulants; E66.01 Morbid (severe) obesity due to excess calories; Z98.84 Bariatric surgery status
CPT/HCPCS: 36415; 70450; 71045; 74176; 80048; 80053; 80076; 80202; 81003; 81015; 82140; 82550; 82805; 82947; 83036; 83735; 83880; 84145; 84484; 85025; 85610; 87040; 87086; 87088; 93005; 94640; 97116; 97161; 97165; 97530; 99285; G0378; J0692; J7030; J7040